=== PATIENT | female | born 1950 | race Caucasian/White ===

== ENCOUNTER → 2017-11-01 14:21 | Outpatient (CLI) | payer MEDICARE, OTHER, SELFPAY ==
[2017-11-01 15:57] LABS: Absolute Lymphocyte Count 2.79 X10^3/ul (0.83-4.51); Absolute Neutrophil Count 4.2 X10^3/uL (2.0-7.7); Basophil# 0.07 X10^3/uL; Basophil% 0.9 % (0-1); Eosinophil# 0.18 X10^3/uL; Eosinophils% 2.3 % (0-5); Hematocrit 42.2 % (37-47); Lymphocyte # 2.79 X10^3/ul (4.0); Lymphocyte % 36.1 % (19-41); Mean Corp Hgb Conc 33.2 g/gl (32-36); Mean Corpuscular Hgb 28.2 pg (27.0-32.0); Mean Corpuscular Volume 84.9 fL (81-99); Mean Platelet Vol. 10.4 fl (6.2-12.0); Monocyte# 0.46 X10^3/uL; Neutrophil % 54.4 % (47-70); Platelet Count 185 K/mm3 (150-450); RBC Distribution Width CV 13.3 % (11.6-14.6); RBC Distribution Width SD 40.6 fl (35.1-43.9); Red Blood Count 4.97 M/mm3 (4.2-5.4); White Blood Count 7.7 K/mm3 (4.4-11.0)
[2017-11-01 16:00] LABS: POSITIVE COUNT NO; POSITIVE DIFFERENTIAL NO; POSITIVE MORPHOLOGY NO
[2017-11-01 16:16] LABS: Erythrocyte Sedimentation Rate 20 mm/hr (0-30)
[2017-11-01 16:33] LABS: AST(SGOT) 75 U/L (15-37); Alanine Aminotransfer ALT/SGPT 116 U/L (12-78); Albumin, Serum 3.9 g/dL (3.4-5.0); Alkaline Phosphatase 110 U/L (45-117); Anion Gap 9 (5-15); BUN 14 mg/dL (7-18); BUN/Creat Ratio 16.4 RATIO (10-20); CRP 4.82 mg/L (0.0-3.0); Calcium,Total 9.3 mg/dL (8.5-10.1); Chloride 102 mmol/L (98-107); Cholesterol 243 mg/dL (200); Creatinine, Serum 0.85 mg/dL (0.55-1.02); EST Glomerular Filtration Rate 71 mL/min (>60); Est Glom Filt Rate - Afr Amer 86 mL/min (>60); Globulin 3.8 g/dL (2.2-4.2); Glucose 87 mg/dL (70-110); High Density Lipoprotein 42 mg/dL; Potassium 3.9 mmol/L (3.5-5.1); Protein, Total 7.7 g/dL (6.4-8.2); Rheumatoid Factor < 10.0 IU/mL (<15); Sodium Level 140 mmol/L (136-145); Triglycerides 426 mg/dL
[2017-11-05 09:36] LABS: ANTINUCLEAR ANTIBODIES DIRECT Negative (Negative)
[2017-11-05 10:28] LABS: CCP IgG Antibodies 5 units (0-19)
== END ==
PROVIDERS: Family Provider Family Medicine; PCP Family Medicine; Visit Provider Family Medicine
DX: M25.50 Pain in unspecified joint (principal); E78.5 Hyperlipidemia, unspecified; R53.83 Other fatigue
CPT/HCPCS: 36415; 80053; 80061; 85025; 85652; 86038; 86140; 86200; 86431

== ENCOUNTER → 2018-05-05 10:46 | Outpatient (CLI) | payer MEDICARE, OTHER, SELFPAY ==
--- NOTE | 2018-05-05 10:48 | BI_ITS ---
MAMMOGRAPHY - BILATERAL SCREENING REASON FOR EXAM: Female, 68 years old. Routine annual screening examination. PERTINENT HISTORY: Sister with breast cancer. TECHNIQUE: Digital bilateral breast angelica (3D mammographic acquisition) in the CC and MLO projections. 2-D mediolateral oblique (MLO) and craniocaudad (CC) views of both breasts were obtained. CAD: Full Field Digital Mammography with Computer Added Detection was performed. COMPARISON: Comparison is made with prior study dated May 01, 2017 and April 16, 2016. FINDINGS: Breast Composition: The breasts are almost entirely fatty. There are no dominant masses or suspicious calcifications. No other significant abnormalities are identified. There has been no significant change since the prior study. BI/SCREENING MAMM (CAD), BILAT IMPRESSION: Stable bilateral screening mammogram. Yearly follow-up mammogram recommended. (A) ASSESSMENT CATEGORY: BIRADS Category 1: Negative. A letter regarding these results will be sent to the patient by the facility within 30 days. Approximately 10% of breast cancers are not detected by mammography. A normal mammogram should not delay biopsy of a clinically suspicious abnormality. [id number] Electronically Signed: Dhiraj Bliss MD at 13:56 EDT Tel [phone], Service support ,
== END ==
PROVIDERS: Family Provider Family Medicine; PCP Family Medicine; Visit Provider Family Medicine
DX: Z12.31 Encounter for screening mammogram for malignant neoplasm of breast (principal)
CPT/HCPCS: 77063; 77067

== ENCOUNTER → 2019-01-05 10:06 | Outpatient (CLI) | payer MEDICARE, OTHER, SELFPAY ==
[2019-01-05 12:49] LABS: ALB/GLOB Ratio 0.9 RATIO (0.9-2.4); AST(SGOT) 116 U/L (15-37); Alanine Aminotransfer ALT/SGPT 152 U/L (13-56); Albumin, Serum 3.7 g/dL (3.2-5.0); Alkaline Phosphatase 116 U/L (45-117); Anion Gap 6 (5-15); BUN 11 mg/dL (7-18); BUN/Creat Ratio 13.2 RATIO (10-20); Calcium,Total 9.2 mg/dL (8.5-10.1); Chloride 105 mmol/L (98-107); Cholesterol 251 mg/dL (200); Creatinine, Serum 0.83 mg/dL (0.55-1.02); EST Glomerular Filtration Rate 73 mL/min (>60); Est Glom Filt Rate - Afr Amer 88 mL/min (>60); Globulin 4.3 g/dL (2.2-4.2); Glucose 90 mg/dL (74-106); High Density Lipoprotein 53 mg/dL; Potassium 4.3 mmol/L (3.5-5.1); Sodium Level 140 mmol/L (136-145); Triglycerides 247 mg/dL; Very Low Density Lipoprotein 49 mg/dL (5-40)
[2019-01-05 13:53] LABS: Absolute Lymphocyte Count 2.76 X10^3/ul (0.83-4.51); Absolute Neutrophil Count 3.9 X10^3/uL (2.0-7.7); Basophil# 0.07 X10^3/uL; Basophil% 0.9 % (0-1); Eosinophil# 0.19 X10^3/uL; Eosinophils% 2.6 % (0-5); Hematocrit 44.9 % (37-47); Hemoglobin 14.9 g/dl (12.0-15.0); Lymphocyte # 2.76 X10^3/ul (4.0); Lymphocyte % 37.3 % (19-41); Mean Corp Hgb Conc 33.2 g/gl (32-36); Mean Corpuscular Volume 84.4 fL (81-99); Mean Platelet Vol. 10.4 fl (6.2-12.0); Monocyte# 0.52 X10^3/uL; Neutrophil # 3.85 X10^3/uL (2.7-7.7); Neutrophil % 52.1 % (47-70); Platelet Count 243 K/mm3 (150-450); Red Blood Count 5.32 M/mm3 (4.2-5.4); White Blood Count 7.4 K/mm3 (4.4-11.0)
[2019-01-05 14:13] LABS: POSITIVE COUNT NO; POSITIVE DIFFERENTIAL NO; POSITIVE MORPHOLOGY NO
== END ==
PROVIDERS: Family Provider Family Medicine; PCP Family Medicine; Referring Provider Family Medicine; Visit Provider Family Medicine
DX: Z00.01 Encounter for general adult medical examination with abnormal findings (principal); E78.5 Hyperlipidemia, unspecified; R74.8 Abnormal levels of other serum enzymes; D64.9 Anemia, unspecified
CPT/HCPCS: 36415; 80053; 80061; 85025

== ENCOUNTER → 2019-01-12 | Outpatient (CLI) | payer MEDICARE, OTHER, SELFPAY ==
--- NOTE | 2019-01-12 09:37 | US_ITS ---
STUDY: ABDOMINAL ULTRASOUND - RIGHT UPPER QUADRANT REASON FOR VISIT: Female, 69 years old. Elevated liver function tests. TECHNIQUE: Ultrasound evaluation of the right upper quadrant was performed with real-time and static anderson-scale imaging. TECHNICAL QUALITY: Adequate. COMPARISON: None. FINDINGS: Liver: The liver measures 19.1 cm. There is increased echogenicity and coarsened echotexture consistent with fatty infiltration. The bile ducts are within normal limits. There is hepatic color flow. The direction of portal flow is hepatopetal. There is no demonstrated mass lesion. Gallbladder: Normal distended gallbladder. The gallbladder wall measures 3 mm. There is a negative sonographic Tenorio's sign. There is no pericholecystic fluid. There are no gallstones. Common Bile Duct (C.B.D.): The common bile duct measures 4 mm. Pancreas: Normal size of the head, body and tail of the pancreas. There is normal echogenicity of the pancreas. There is no demonstrated pancreatic mass or cyst. Right Kidney: Normal size of the right kidney. The right kidney measures 10.7 cm. Normal renal cortex. The right cortex measures 1.5 cm. There is no demonstrated renal mass or cyst. There is no right hydronephrosis. US/Liver IMPRESSION: Fatty liver. Normal gallbladder. Electronically Signed: Adithya Serra MD at 6:01 EDT , Service support ,
== END | disposition home or self-care (01) ==
LOC: US 09:36
PROVIDERS: Family Provider Family Medicine; PCP Family Medicine; Referring Provider Family Medicine; Visit Provider Family Medicine
DX: R74.8 Abnormal levels of other serum enzymes (principal)
CPT/HCPCS: 76705

== ENCOUNTER → 2019-01-21 10:30 | Outpatient (CLI) | payer MEDICARE, OTHER, SELFPAY ==
[2019-01-21 12:52] LABS: Erythrocyte Sedimentation Rate 20 mm/hr (0-30)
[2019-01-22 16:22] LABS: Anti-Mitochondrial AB <20.0 Units (0.0-20.0); Anti-Smooth Muscle ABS 7 Units (0-19); HEPATITIS B SURFACE AG Negative (Negative); Hep C Antibodies <0.1 s/co ratio (0.0-0.9)
== END ==
PROVIDERS: Family Provider Family Medicine; PCP Family Medicine; Referring Provider Internal Medicine Gastroenterology; Visit Provider Internal Medicine Gastroenterology
DX: K75.9 Inflammatory liver disease, unspecified (principal)
CPT/HCPCS: 36415; 83516; 85652; 86803; 87340

== ENCOUNTER → 2019-04-17 13:44 | Outpatient (CLI) | payer MEDICARE, OTHER, SELFPAY ==
[2019-04-17 15:52] LABS: AST(SGOT) 39 U/L (15-37); Alanine Aminotransfer ALT/SGPT 44 U/L (13-56); Albumin, Serum 3.7 g/dL (3.2-5.0); Alkaline Phosphatase 93 U/L (45-117); Cholesterol 164 mg/dL (200); Globulin 3.7 g/dL (2.2-4.2); High Density Lipoprotein 52 mg/dL; Protein, Total 7.4 g/dL (6.4-8.2); Triglycerides 256 mg/dL; Very Low Density Lipoprotein 51 mg/dL (5-40)
== END ==
PROVIDERS: Family Provider Family Medicine; PCP Family Medicine; Visit Provider Family Medicine
DX: E78.5 Hyperlipidemia, unspecified (principal)
CPT/HCPCS: 36415; 80061; 80076

== ENCOUNTER → 2019-05-06 10:27 | Outpatient (CLI) | payer MEDICARE, OTHER, SELFPAY ==
--- NOTE | 2019-05-06 10:43 | BI_ITS ---
MAMMOGRAPHY - BILATERAL SCREENING REASON FOR EXAM: Female, 69 years old. Routine annual screening examination. PERTINENT HISTORY: Sister with breast cancer. TECHNIQUE: Digital bilateral breast conchis (3D mammographic acquisition) in the CC and MLO projections. 2-D mediolateral oblique (MLO) and craniocaudad (CC) views of both breasts were obtained. CAD: Full Field Digital Mammography with Computer Added Detection was performed. COMPARISON: Comparison is made with prior study dated May 05, 2018 and May 01, 2017. FINDINGS: Breast Composition: The breasts are almost entirely fatty. There are no dominant masses or suspicious calcifications. No other significant abnormalities are identified. There has been no significant change since the prior study. BI/SCREEN MAMM (CAD) W/CONCHIS BILAT IMPRESSION: Stable bilateral screening mammogram. Yearly follow-up mammogram recommended. (A) ASSESSMENT CATEGORY: BIRADS Category 1: Negative. A letter regarding these results will be sent to the patient by the facility within 30 days. Approximately 10% of breast cancers are not detected by mammography. A normal mammogram should not delay biopsy of a clinically suspicious abnormality. [id number] Electronically Signed: Dhiraj Bliss, at 13:49 EDT , Service support ,
== END ==
PROVIDERS: Family Provider Family Medicine; PCP Family Medicine; Referring Provider Family Medicine; Visit Provider Family Medicine
DX: Z12.31 Encounter for screening mammogram for malignant neoplasm of breast (principal); M81.0 Age-related osteoporosis without current pathological fracture
CPT/HCPCS: 77063; 77067

== ENCOUNTER → 2019-05-07 10:00 | Outpatient (CLI) | payer MEDICARE, OTHER, SELFPAY ==
--- NOTE | 2019-05-07 10:03 | BD_ITS ---
STUDY: DUAL ENERGY X-RAY ABSORPTIOMETRY / DXA REASON FOR EXAM: Female, 69 years old. The patient is postmenopausal. Loss of height. TECHNIQUE: Bone Mineral Density (BMD) measurements of lumbar spine and bilateral hips were obtained. COMPARISON: Comparison is made with prior study dated March 13, 2011. FINDINGS: Lumbar Spine (L1-L4): g/cm2 (0.901) / T-score (-2.3) / Z-score (-0.7) Findings are suggestive of osteopenia with a high fracture risk. Left Femur Total: g/cm2 (0.849) / T-score (-1.3) / Z-score (0.1) Left Femoral Neck: g/cm2 (0.714) / T-score (-2.3) / Z-score (-0.7) Right Femur Total: g/cm2 (0.820) / T-score (-1.5) / Z-score (-0.1) Right Femoral Neck: g/cm2 (0.740) / T-score (-2.1) / Z-score (-0.5) The T-Scores on the most recent prior examination were: Lumbar Spine (L1-L4): There has been worsening of bone density since the previous examination. Left Femur Total: which represents a worsening of 3.1%. Right Femur Total: which represents a worsening of 8.1%. BD/Dexa Bone Density Study IMPRESSION: The patient is considered osteopenic as outlined below according to World Sandor Organization (WHO) criteria with a high fracture risk. There has been worsening of bone density since the previous examination. Reference Information: The T-score is the number of standard deviations above or below the standard which is normal for young adults at their peak bone mineral density. The World Health Organization (WHO) interprets the T-scores as follows: Above -1 Normal bone density Between -1 and -2.5 Osteopenia Equal to / or below -2.5 Osteoporosis As a practical clinical guideline, osteopenia may be graded as follows: Mild -1 through -1.5 Moderate -1.6 through -2.0 Severe -2.1 through -2.4 The Z-score is the number of standard deviations above or below age-matched controls. A Z-score of less than -1.5 would be considered abnormal. References: 1. NIH Osteoporosis and Related Bone Diseases http://www.osteo.org 2. International Society for Clinical Densitometry http://www.iscd.org 3. National Osteoporosis Foundation http://www.nof.org Electronically Signed: Dhiraj Bliss, at 10:44 EDT , Service support ,
== END ==
PROVIDERS: Family Provider Family Medicine; PCP Family Medicine; Referring Provider Family Medicine; Visit Provider Family Medicine
DX: M81.0 Age-related osteoporosis without current pathological fracture (principal)
CPT/HCPCS: 77080

== ENCOUNTER → 2020-03-22 11:39 | Outpatient (CLI) | payer MEDICARE, SELFPAY ==
[2020-03-22 15:03] LABS: Absolute Lymphocyte Count 2.52 X10^3/uL (0.83-4.51); Absolute Neutrophil Count 3.9 X10^3/uL (2.0-7.7); Basophil# 0.07 X10^3/uL; Eosinophil# 0.17 X10^3/uL; Eosinophils% 2.4 % (0-5); Hematocrit 43.6 % (37-47); Hemoglobin 13.7 g/dL (12.0-15.0); Lymphocyte # 2.52 X10^3/ul (4.0); Lymphocyte % 35.2 % (19-41); Mean Corp Hgb Conc 31.4 g/dL (32-36); Mean Corpuscular Volume 85.8 fL (81-99); Mean Platelet Vol. 10.7 fl (6.2-12.0); NRBC Flagged by Analyzer 0 % (0-5); Neutrophil # 3.89 X10^3/uL (2.7-7.7); Neutrophil % 54.3 % (47-70); Platelet Count 137 K/mm3 (150-450); RBC Distribution Width CV 14.2 % (11.6-14.6); Red Blood Count 5.08 M/mm3 (4.2-5.4); White Blood Count 7.2 K/mm3 (4.4-11.0)
[2020-03-22 15:14] LABS: Vitamin D,25 Hydroxy 41.2 ng/mL
[2020-03-22 15:18] LABS: ALB/GLOB Ratio 0.9 RATIO (0.9-2.4); AST(SGOT) 30 U/L (15-37); Alanine Aminotransfer ALT/SGPT 46 U/L (13-56); Albumin, Serum 3.6 g/dL (3.2-5.0); Alkaline Phosphatase 91 U/L (45-117); Anion Gap 5 (5-15); BUN 11 mg/dL (7-18); BUN/Creat Ratio 12.7 RATIO (10-20); Calcium,Total 9.1 mg/dL (8.5-10.1); Chloride 104 mmol/L (98-107); Cholesterol 195 mg/dL (200); Creatinine, Serum 0.86 mg/dL (0.55-1.02); EST Glomerular Filtration Rate 69 mL/min (>60); Est Glom Filt Rate - Afr Amer 84 mL/min (>60); Glucose 95 mg/dL (74-106); High Density Lipoprotein 50 mg/dL; Potassium 4.4 mmol/L (3.5-5.1); Protein, Total 7.6 g/dL (6.4-8.2); Sodium Level 140 mmol/L (136-145); T4 Free Direct 0.86 ng/dL (0.76-1.46); Triglycerides 293 mg/dL; Very Low Density Lipoprotein 59 mg/dL (5-40)
[2020-03-24 14:31] LABS: Thyroid Stim Hormone (TSH) 1.93 uIU/mL (0.358-3.74)
== END ==
PROVIDERS: PCP Family Medicine; Visit Provider Family Medicine
DX: R23.2 Flushing (principal); E78.5 Hyperlipidemia, unspecified; D50.9 Iron deficiency anemia, unspecified; K75.81 Nonalcoholic steatohepatitis (NASH); M81.0 Age-related osteoporosis without current pathological fracture
CPT/HCPCS: 36415; 80053; 80061; 82306; 84439; 84443; 85025

== ENCOUNTER → 2020-05-26 16:04 | Outpatient (CLI) | payer MEDICARE, OTHER, SELFPAY ==
--- NOTE | 2020-05-26 16:06 | BI_ITS ---
MAMMOGRAPHY - BILATERAL SCREENING 3-D TOMOSYNTHESIS REASON FOR EXAM: Female, 70 years old. Annual screening mammogram. PERTINENT HISTORY: Family history of breast cancer in sister at age 59. TECHNIQUE: 2-D mammograms and 3-D Tomosynthesis of the breast (s) were performed. CAD was performed. COMPARISON: 05/06/2019, 05/05/2018 FINDINGS: The breast composition is almost entirely fat. Scattered benign calcifications are seen. No dense spiculated masses or suspicious microcalcifications are identified. No architectural distortion is identified. There is no skin thickening or retraction. There has been no significant change since the prior study. BI/SCREEN MAMM (CAD) W/CONCHIS BILAT IMPRESSION: No mammographic signs of malignancy. Routine yearly mammograms recommended. ASSESSMENT CATEGORY: BIRADS Category 2: Benign. A letter regarding these results will be sent to the patient by the facility within 30 days. FOLLOW UP RECOMMENDATION: Yearly follow up mammogram recommended. (A) Approximately 10% of breast cancers are not detected by mammography. A normal mammogram should not delay biopsy of a clinically suspicious abnormality. Electronically Signed: Roddy Cooper MD at 15:36 EDT , Service support ,
== END ==
PROVIDERS: PCP Family Medicine; Referring Provider Family Medicine; Visit Provider Family Medicine
DX: Z12.31 Encounter for screening mammogram for malignant neoplasm of breast (principal); Z80.3 Family history of malignant neoplasm of breast
CPT/HCPCS: 77063; 77067

== ENCOUNTER → 2020-06-20 10:14 | Outpatient (CLI) | payer MEDICARE, OTHER, SELFPAY ==
--- NOTE | 2020-06-20 10:19 | RAD_ITS ---
STUDY: X-RAY - CERVICAL SPINE REASON FOR EXAM: Female, 70 years old. PERSISTENT NECK PAIN AND GRINDING x2-3 MONTHS, NKI TECHNIQUE: 5 view(s) of the cervical spine were obtained. COMPARISON: None FINDINGS: Normal anterior atlantoaxial articulation. Normal odontoid process. Decreased cervical lordosis. Mild degenerative changes of the lower cervical vertebral bodies with spurring at the endplates. Narrowed C5-6 and C6-7 disc space heights. Grade 1 spondylolisthesis at C3-4 and C4-5. Uncovertebral spurring slightly narrowing the C5-6 and C6-7 The soft tissue structures are unremarkable. RAD/Cerv Spine 4 or 5 Views IMPRESSION: Degenerative changes of the visualized cervical spine. Electronically Signed: Omar Rios DO at 23:59 EDT Tel [phone], Service support ,
== END ==
PROVIDERS: PCP Family Medicine; Referring Provider Family Medicine; Visit Provider Family Medicine
DX: M54.2 Cervicalgia (principal)
CPT/HCPCS: 72050

== ENCOUNTER → 2020-07-04 06:16 | Outpatient (CLI) | payer MEDICARE, OTHER, SELFPAY ==
--- NOTE | 2020-07-04 18:23 | STRESSREP ---
Stress Test Report Exercise myocardial perfusion stress test. 70-year-old lady with a history of chest pain. Stress protocol: Resting EKG demonstrates normal sinus rhythm with a rate of 69 bpm normal intervals are noted resting blood pressure is 122/80 mmHg. The patient exercised according to regular Ortiz protocol for a total duration of 4 minutes and 31 seconds. The patient completed 1 minute and 31 seconds into stage II of the Ortiz protocol. The maximum heart rate attained was 136 bpm which was 90% of max impacted heart rate the maximum workload was 6.4 metabolic equivalents. At rest there were no ST or T wave changes noted to suggest ischemia at peak exercise upsloping ST changes were noted less than 1 mm which did not meet the criteria for ischemia. No obvious clinical angina was noted the test was terminated due to dyspnea. The resting blood pressure was 122/80 mmHg with a peak blood pressure of 164/72 mmHg. Myocardial perfusion protocol. 11.4 mCi of technetium 99m sestamibi was injected at rest. The patient exercised according to regular Ortiz protocol for 4-1/2 minutes. At peak exercise 32.9 mCi of technetium 99m sestamibi was injected stress images were obtained stress and rest images were reconstructed and compared in the short axis vertical long and horizontal long axis. Gated images were also obtained. Perfusion SPECT analysis: Review of the stress images demonstrate normal uptake of tracer noted in all areas of the myocardium the resting images similar demonstrate normal uptake of tracer noted in all areas of the myocardium. No areas of reversibility are noted suggest ischemia no previous infarct is noted. Gated SPECT analysis: The gated ejection fraction is 68%. Conclusion: Normal exercise myocardial perfusion stress test at a moderate workload. Preserved ejection fraction.
== END ==
PROVIDERS: PCP Family Medicine; Referring Provider Family Medicine; Visit Provider Family Medicine
DX: R06.00 Dyspnea, unspecified (principal)
CPT/HCPCS: 78452; 93017; A9500; A4216

== ENCOUNTER 2020-09-09 12:00 | Outpatient (RCR) | payer MEDICARE, OTHER, SELFPAY ==
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
--- NOTE | 2020-09-09 12:55 | HP.PTDCSUM ---
It has been my pleasure to treat EVELIN HAMMOND referred by Dr. Aldo Godwin DO, with the diagnosis of CERVICALGIA for a total of 20 visit(s). Discharge Date: Please see the following information for a summary of their discharge status. Subjective: PATIENT REPORTS SHE IS SO MUCH BETTER. DECREASED PAIN AND DECREASED CRACKING. GETS NECK ACHES BUT NOT HEADACHES NOW. NECK Pain Intensity (Out of 10): 1 % Improvement: 99 Objective/Function: PATIENT HAS MADE GREAT PROGRESS WITH PT. ALL GOALS MET HOWEVER PATIENT DOES STILL GET INTERMITTENT MILD NECK PAIN AND SHE STILL HAS CERVICAL MVMT LOSS FOLLOWS: Cervical Mvmt Loss: Flex: NIL. Pro: NIL. Ext: MOD - I FEEL A TWINGE ON THE LEFT. Ret: MOD TO MAL - AGAIN REPORTS PRESSURE ON THE LEFT. RSB: MIN TO MOD - C/O LEFT NECK PAIN. LSB: MOD. R Rot: MOD - A LITTLE LEFT NECK PAIN. L Rot: MOD - A LITTLE LEFT NECK PAIN. Postural strength: POOR. Palpation: PATIENT IS TENDER WITH PALPATION ALONG THE LEFT UPPER TRAP AND SCALENE REGIONS INTO OCCIPUT. OVER-ALL SYMPTOMS ARE STARTING TO PLATEAU. Goal 1:: DECREASE C/O HEAD AND NECK PAIN Goal Progress: Goal Met Goal 2:: IMPROVE RECREATIONAL FUNCTION Goal Progress: Goal Met Goal 3:: INSTRUCT IN PROPHYLAXIS Goal Progress: Goal Met Plan: D/C TO INDEP EX AND FOLLOW UP WITH PHYSICIAN NEEDED IF SYMPTOMS DO NOT CONTINUE TO RESOLVE. PATIENT IS AGREEABLE. If there are questions or concerns regarding this patient's physical therapy, please feel free to call me at [phone]. Thank you for the referral of this patient. Sincerely, Indu Yip, PT, Cert MDT
== END 2020-09-09 19:00 | disposition home or self-care (01) ==
LOC: PT 12:00
PROVIDERS: PCP Family Medicine; Referring Provider Family Medicine; Visit Provider Family Medicine
DX: M54.2 Cervicalgia (principal)
CPT/HCPCS: 97012; 97035; 97110; 97112; 97140; 97162; 97164; 97530

== ENCOUNTER → 2021-04-03 10:47 | Outpatient (CLI) | payer MEDICARE, OTHER, SELFPAY ==
--- NOTE | 2021-04-04 06:32 | PFT ---
INTRODUCTION: The patient is a 71-year-old female that presents for pulmonary function studies secondary to a diagnosis of dyspnea. Respiratory therapy reports good patient effort. Bronchodilators were used during testing. INTERPRETATION: Forced expiration spirometry demonstrates the presence of a moderate large airways obstructive ventilatory defect. There was a significant response to aerosolized bronchodilators noted. Spirograms are of good quality and plateau gradually. Body plethysmography was performed and reveals lung volumes to be within normal limits. Diffusing capacity by single breath CO is within normal limits. IMPRESSION: Partially reversible moderate large airways obstructive ventilatory defect with preserved lung volumes and diffusing capacity.
== END ==
PROVIDERS: PCP Family Medicine; Referring Provider Family Medicine; Visit Provider Family Medicine
DX: R06.00 Dyspnea, unspecified (principal)
CPT/HCPCS: 94060; 94726; 94729

== ENCOUNTER → 2021-06-01 10:26 | Outpatient (CLI) | payer MEDICARE, OTHER, SELFPAY ==
--- NOTE | 2021-06-01 10:32 | BI_ITS ---
MAMMOGRAPHY - BILATERAL SCREENING REASON FOR EXAM: Female, 71 years old. Routine annual screening examination. PERTINENT HISTORY: Sister with breast cancer. TECHNIQUE: Digital bilateral breast conchis (3D mammographic acquisition) in the CC and MLO projections. 2-D mediolateral oblique (MLO) and craniocaudad (CC) views of both breasts were obtained. CAD: Full Field Digital Mammography with Computer Added Detection was performed. COMPARISON: Comparison is made with prior study 05/26/2020 and 05/06/2019. FINDINGS: Breast Composition: The breasts are almost entirely fatty. There are no dominant masses or suspicious calcifications. No other significant abnormalities are identified. There has been no significant change since the prior study. BI/SCRN MAMM (CAD)W/CONCHIS BILAT IMPRESSION: Stable bilateral screening mammogram. Yearly follow-up mammogram recommended. (A) ASSESSMENT CATEGORY: BIRADS Category 1: Negative. A letter regarding these results will be sent to the patient by the facility within 30 days. Approximately 10% of breast cancers are not detected by mammography. A normal mammogram should not delay biopsy of a clinically suspicious abnormality. [id number] Electronically Signed: Dhiraj Bliss MD at 11:58 EDT , Service support ,
--- NOTE | 2021-06-01 10:33 | BD_ITS ---
STUDY: DUAL ENERGY X-RAY ABSORPTIOMETRY / DXA REASON FOR EXAM: Female, 71 years old. M810. The patient is postmenopausal. TECHNIQUE: Bone Mineral Density (BMD) measurements of lumbar spine and bilateral hips were obtained. COMPARISON: Comparison is made with prior study dated 05/07/2019. FINDINGS: Lumbar Spine (L1-L4): g/cm2 (0.772) / T-score (-2.5) / Z-score (-0.4) Findings are suggestive of osteopenia with a high fracture risk. Left Femur Total: g/cm2 (0.761) / T-score (-1.5) / Z-score (0.0) Left Femoral Neck: g/cm2 (0.5-2) / T-score (-2.9) / Z-score (-1.1) Right Femur Total: g/cm2 (0.831) / T-score (-0.9) / Z-score (0.6) Right Femoral Neck: g/cm2 (0.630) / T-score (-2.0) / Z-score (-0.2) The T-Scores on the most recent prior examination were: Lumbar Spine (L1-L4): There has been worsening of bone density since the previous examination. Left Femur Total: which represents a worsening of 3.4%. Right Femur Total: which represents an improvement of 9.5%. BD/Dexa Bone Density Study IMPRESSION: The patient is considered osteoporotic as outlined below according to World Sandor Organization (WHO) criteria with a high fracture risk. There has been worsening of bone density since the previous examination. Reference Information: The T-score is the number of standard deviations above or below the standard which is normal for young adults at their peak bone mineral density. The World Health Organization (WHO) interprets the T-scores as follows: Above -1 Normal bone density Between -1 and -2.5 Osteopenia Equal to / or below -2.5 Osteoporosis As a practical clinical guideline, osteopenia may be graded as follows: Mild -1 through -1.5 Moderate -1.6 through -2.0 Severe -2.1 through -2.4 The Z-score is the number of standard deviations above or below age-matched controls. A Z-score of less than -1.5 would be considered abnormal. References: 1. NIH Osteoporosis and Related Bone Diseases www osteo.org 2. International Society for Clinical Densitometry www iscd.org 3. National Osteoporosis Foundation www nof.org Electronically Signed: Dhiraj Bliss MD at 7:46 EDT , Service support ,
== END ==
PROVIDERS: PCP Family Medicine; Referring Provider Family Medicine; Visit Provider Family Medicine
DX: Z12.31 Encounter for screening mammogram for malignant neoplasm of breast (principal); M81.0 Age-related osteoporosis without current pathological fracture
CPT/HCPCS: 77063; 77067; 77080

== ENCOUNTER → 2022-04-04 | Outpatient (CLI) | payer MEDICARE, OTHER, SELFPAY ==
[2022-04-04 09:52] LABS: Absolute Lymphocyte Count 1.93 X10^3/uL (0.83-4.51); Absolute Neutrophil Count 3.3 X10^3/uL (2.0-7.7); Basophil# 0.07 X10^3/uL; Basophil% 1.2 % (0-1); Eosinophil# 0.23 X10^3/uL; Eosinophils% 3.8 % (0-5); Hematocrit 43.1 % (37-47); Hemoglobin 13.9 g/dL (12.0-15.0); Lymphocyte # 1.93 X10^3/ul (0.83-4.51); Lymphocyte % 32.2 % (19-41); Mean Corp Hgb Conc 32.3 g/dL (32-36); Mean Corpuscular Hgb 28.2 pg (27.0-32.0); Mean Corpuscular Volume 87.4 fL (81-99); Mean Platelet Vol. 10.3 fl (6.2-12.0); Monocyte# 0.41 X10^3/uL; Monocyte% 6.8 % (0-10); NRBC Flagged by Analyzer 0 % (0-5); Neutrophil # 3.34 X10^3/uL (2.7-7.7); Neutrophil % 55.8 % (47-70); Platelet Count 237 K/mm3 (150-450); RBC Distribution Width CV 13.1 % (11.6-14.6); RBC Distribution Width SD 41.4 fl (35.1-43.9); Red Blood Count 4.93 M/mm3 (4.2-5.4)
[2022-04-04 10:11] LABS: Vitamin D,25 Hydroxy 48.2 ng/mL
[2022-04-04 10:12] LABS: AST(SGOT) 56 U/L (15-37); Alanine Aminotransfer ALT/SGPT 65 U/L (13-56); Albumin, Serum 3.7 g/dL (3.2-5.0); Alkaline Phosphatase 82 U/L (45-117); Anion Gap 4 (5-15); BUN 12 mg/dL (7-18); BUN/Creat Ratio 14.7 RATIO (10-20); Calcium,Total 9.1 mg/dL (8.5-10.1); Chloride 107 mmol/L (98-107); Cholesterol 176 mg/dL (200); Creatinine, Serum 0.82 mg/dL (0.55-1.02); EST Glomerular Filtration Rate 73 mL/min (>60); Est Glom Filt Rate - Afr Amer 88 mL/min (>60); Globulin 3.7 g/dL (2.2-4.2); Glucose 106 mg/dL (74-106); High Density Lipoprotein 49 mg/dL; Potassium 4.4 mmol/L (3.5-5.1); Protein, Total 7.4 g/dL (6.4-8.2); Sodium Level 141 mmol/L (136-145); Triglycerides 226 mg/dL; Very Low Density Lipoprotein 45 mg/dL (5-40)
== END | disposition home or self-care (01) ==
LOC: MTLAB 09:11
PROVIDERS: PCP Family Medicine; Referring Provider Family Medicine; Visit Provider Family Medicine
DX: K75.81 Nonalcoholic steatohepatitis (NASH) (principal); E78.5 Hyperlipidemia, unspecified; M81.0 Age-related osteoporosis without current pathological fracture; D50.9 Iron deficiency anemia, unspecified
CPT/HCPCS: 36415; 80053; 80061; 82306; 85025

== ENCOUNTER → 2022-06-04 | Outpatient (CLI) | payer MEDICARE, OTHER, SELFPAY ==
--- NOTE | 2022-06-04 13:19 | BI_ITS ---
MAMMOGRAPHY - BILATERAL SCREENING REASON FOR EXAM: Female, 72 years old. Routine annual screening examination. PERTINENT HISTORY: Sister with breast cancer. TECHNIQUE: Digital bilateral breast conchis (3D mammographic acquisition) in the CC and MLO projections. 2-D mediolateral oblique (MLO) and craniocaudad (CC) views of both breasts were obtained. CAD: Full Field Digital Mammography with Computer Added Detection was performed. COMPARISON: Comparison is made with prior study 06/01/2021 and 05/26/2020. FINDINGS: Breast Composition: There are scattered areas of fibroglandular density. There are no dominant masses or suspicious calcifications. Stable small bilateral benign-appearing axillary lymph nodes. No other significant abnormalities are identified. There has been no significant change since the prior study. BI/SCRN MAMM (CAD)W/CONCHIS BILAT IMPRESSION: Stable bilateral screening mammogram. Yearly follow-up mammogram recommended. (A) ASSESSMENT CATEGORY: BIRADS Category 2: Benign. A letter regarding these results will be sent to the patient by the facility within 30 days. Approximately 10% of breast cancers are not detected by mammography. A normal mammogram should not delay biopsy of a clinically suspicious abnormality. [id number] Electronically Signed: Dhiraj Bliss MD at 13:52 EDT ,
== END | disposition home or self-care (01) ==
LOC: OPBI 13:16
PROVIDERS: PCP Family Medicine; Visit Provider Family Medicine
DX: Z12.31 Encounter for screening mammogram for malignant neoplasm of breast (principal); Z80.3 Family history of malignant neoplasm of breast
CPT/HCPCS: 77063; 77067

== ENCOUNTER → 2023-02-06 | Outpatient (CLI) | payer MEDICARE, OTHER, SELFPAY ==
[2023-02-06 17:58] LABS: Absolute Lymphocyte Count 2.59 X10^3/uL (0.83-4.51); Absolute Neutrophil Count 3.5 X10^3/uL (2.0-7.7); Basophil# 0.07 X10^3/uL; Eosinophil# 0.19 X10^3/uL; Eosinophils% 2.7 % (0-5); Hematocrit 39.2 % (37-47); Hemoglobin 12.4 g/dL (12.0-15.0); Lymphocyte # 2.59 X10^3/ul (0.83-4.51); Lymphocyte % 37.3 % (19-41); Mean Corp Hgb Conc 31.6 g/dL (32-36); Mean Corpuscular Volume 85.4 fL (81-99); Mean Platelet Vol. 9.7 fl (6.2-12.0); Monocyte# 0.58 X10^3/uL; Monocyte% 8.3 % (0-10); NRBC Flagged by Analyzer 0 % (0-5); Neutrophil # 3.49 X10^3/uL (2.7-7.7); Neutrophil % 50.3 % (47-70); Platelet Count 289 K/mm3 (150-450); RBC Distribution Width CV 14.8 % (11.6-14.6); RBC Distribution Width SD 46.3 fl (35.1-43.9); Red Blood Count 4.59 M/mm3 (4.2-5.4)
[2023-02-06 18:23] LABS: ALB/GLOB Ratio 1.1 RATIO (0.9-2.4); AST(SGOT) 60 U/L (15-37); Alanine Aminotransfer ALT/SGPT 66 U/L (13-56); Albumin, Serum 3.5 g/dL (3.2-5.0); Alkaline Phosphatase 95 U/L (45-117); Anion Gap 8 (5-15); BUN 11 mg/dL (7-18); BUN/Creat Ratio 13.8 RATIO (10-20); Calcium,Total 8.6 mg/dL (8.5-10.1); Chloride 105 mmol/L (98-107); EST Glomerular Filtration Rate 75 mL/min (>60); Est Glom Filt Rate - Afr Amer 91 mL/min (>60); Globulin 3.1 g/dL (2.2-4.2); Glucose 112 mg/dL (74-106); Protein, Total 6.6 g/dL (6.4-8.2); Sodium Level 140 mmol/L (136-145); Thyroid Stim Hormone (TSH) 2.35 uIU/mL (0.358-3.74)
[2023-02-06 18:40] LABS: Internal QC Validated? YES +Cl - CLEAR BKGD; Monotest Negative (Negative)
== END | disposition home or self-care (01) ==
LOC: MFPLAB 15:54
PROVIDERS: PCP Family Medicine; Visit Provider Family Medicine
DX: R53.83 Other fatigue (principal)
CPT/HCPCS: 36415; 80053; 84443; 85025; 86308

== ENCOUNTER → 2023-04-18 | Outpatient (CLI) | payer MEDICARE, OTHER, SELFPAY ==
[2023-04-18 15:41] LABS: ALB/GLOB Ratio 0.9 RATIO (0.9-2.4); AST(SGOT) 94 U/L (15-37); Alanine Aminotransfer ALT/SGPT 97 U/L (13-56); Albumin, Serum 3.5 g/dL (3.2-5.0); Alkaline Phosphatase 93 U/L (45-117); Anion Gap 8 (5-15); BUN 8 mg/dL (7-18); BUN/Creat Ratio 10.1 RATIO (10-20); Chloride 103 mmol/L (98-107); Cholesterol 158 mg/dL (200); Creatinine, Serum 0.79 mg/dL (0.55-1.02); EST Glomerular Filtration Rate 76 mL/min (>60); Est Glom Filt Rate - Afr Amer 92 mL/min (>60); Ferritin 64 ng/mL (8-252); Glucose 84 mg/dL (74-106); High Density Lipoprotein 50 mg/dL; Potassium 4.1 mmol/L (3.5-5.1); Protein, Total 7.5 g/dL (6.4-8.2); Sodium Level 140 mmol/L (136-145); Triglycerides 215 mg/dL; Very Low Density Lipoprotein 43 mg/dL (5-40)
[2023-04-18 15:42] LABS: Vitamin B12 789 pg/mL (211-911); Vitamin D,25 Hydroxy 51.3 ng/mL
[2023-04-18 16:24] LABS: AST(SGOT) 95 U/L (15-37); Alanine Aminotransfer ALT/SGPT 98 U/L (13-56); Albumin, Serum 3.5 g/dL (3.2-5.0); Alkaline Phosphatase 96 U/L (45-117); Bilirubin, Direct 0.13 mg/dL (0.00-0.30); Protein, Total 7.5 g/dL (6.4-8.2)
[2023-04-18 17:32] LABS: Hemoglobin A1c 5.6 % (3.8-5.6)
== END | disposition home or self-care (01) ==
LOC: MTLAB 11:49
PROVIDERS: Family Medicine; PCP Family Medicine; Visit Provider Family Medicine
DX: E78.2 Mixed hyperlipidemia (principal); R74.8 Abnormal levels of other serum enzymes; R73.09 Other abnormal glucose; K21.9 Gastro-esophageal reflux disease without esophagitis
CPT/HCPCS: 36415; 80053; 80061; 80076; 82306; 82607; 82728; 83036

== ENCOUNTER → 2023-06-05 | Outpatient (CLI) | payer MEDICARE, OTHER, SELFPAY ==
--- NOTE | 2023-06-05 10:34 | BI_ITS ---
MAMMOGRAPHY - BILATERAL SCREENING REASON FOR EXAM: Female, 73 years old. Routine annual screening examination. PERTINENT HISTORY: Sister with breast cancer. TECHNIQUE: Digital bilateral breast conchis (3D mammographic acquisition) in the CC and MLO projections. 2-D mediolateral oblique (MLO) and craniocaudad (CC) views of both breasts were obtained. CAD: Full Field Digital Mammography with Computer Added Detection was performed. COMPARISON: Comparison is made with prior study June 04, 2022 and June 01, 2021. FINDINGS: Breast Composition: There are scattered areas of fibroglandular density. There are no dominant masses or suspicious calcifications. Stable small benign-appearing bilateral axillary lymph nodes. No other significant abnormalities are identified. There has been no significant change since the prior study. BI/SCRN MAMM (CAD)W/CONCHIS BILAT IMPRESSION: Stable bilateral screening mammogram. Yearly follow-up mammogram recommended. (A) ASSESSMENT CATEGORY: BIRADS Category 2: Benign. A letter regarding these results will be sent to the patient by the facility within 30 days. Approximately 10% of breast cancers are not detected by mammography. A normal mammogram should not delay biopsy of a clinically suspicious abnormality. [id number] Electronically Signed: Dhiraj Bliss MD at 12:33 EDT ,
--- NOTE | 2023-06-05 10:52 | BD_ITS ---
STUDY: DUAL ENERGY X-RAY ABSORPTIOMETRY / DXA REASON FOR EXAM: Female, 73 years old. M81.0 TECHNIQUE: Bone Mineral Density (BMD) measurements of lumbar spine and bilateral hips were obtained. COMPARISON: Comparison is made with prior study dated June 01, 2021. FINDINGS: Lumbar Spine (L1-L4): g/cm2 (0.829) / T-score (-2.0) / Z-score (0.3) Findings are suggestive of osteopenia with a moderate fracture risk. Left Femur Total: g/cm2 (0.826) / T-score (-1.0) / Z-score (0.7) Left Femoral Neck: g/cm2 (0.578) / T-score (-2.4) / Z-score (-0.5) Right Femur Total: g/cm2 (0.830) / T-score (-0.9) / Z-score (0.7) Right Femoral Neck: g/cm2 (0.610) / T-score (-2.2) / Z-score (-0.2) The T-Scores on the most recent prior examination were: Lumbar Spine (L1-L4): There has been improvement of bone density since the previous examination. Left Femur Total: which represents an improvement of 8.6%. Right Femur Total: which represents a worsening of 0.1%. BD/Dexa Bone Density Study IMPRESSION: The patient is considered osteopenic as outlined below according to World Sandor Organization (WHO) criteria with a high fracture risk. There has been improvement of bone density since the previous examination. Reference Information: The T-score is the number of standard deviations above or below the standard which is normal for young adults at their peak bone mineral density. The World Health Organization (WHO) interprets the T-scores as follows: Above -1 Normal bone density Between -1 and -2.5 Osteopenia Equal to / or below -2.5 Osteoporosis As a practical clinical guideline, osteopenia may be graded as follows: Mild -1 through -1.5 Moderate -1.6 through -2.0 Severe -2.1 through -2.4 The Z-score is the number of standard deviations above or below age-matched controls. A Z-score of less than -1.5 would be considered abnormal. References: 1. NIH Osteoporosis and Related Bone Diseases www osteo.org 2. International Society for Clinical Densitometry www iscd.org 3. National Osteoporosis Foundation www nof.org Electronically Signed: Dhiraj Bliss MD at 14:17 EDT ,
== END | disposition home or self-care (01) ==
LOC: OPBD 10:32
PROVIDERS: PCP Family Medicine; Referring Provider Family Medicine; Visit Provider Family Medicine
DX: Z12.31 Encounter for screening mammogram for malignant neoplasm of breast (principal); Z80.3 Family history of malignant neoplasm of breast; M81.0 Age-related osteoporosis without current pathological fracture
CPT/HCPCS: 77063; 77067; 77080

== ENCOUNTER → 2023-09-24 | Outpatient (CLI) | payer MEDICARE, OTHER, SELFPAY ==
--- NOTE | 2023-09-24 15:41 | RAD_ITS ---
STUDY: X-RAY - SACROILIAC JOINTS REASON FOR EXAM: Female, 73 years old. BACK PAIN TECHNIQUE: 3 view(s) of the sacroiliac joints were obtained. COMPARISON: None. FINDINGS: Normal bilateral sacroiliac joints. Normal visualized sacral ala and sacrum. Normal visualized iliac bones. Normal visualized soft tissue structures. RAD/S-I Jts 3 or More Views IMPRESSION: Normal x-ray examination of the bilateral sacroiliac joints. Electronically Signed: Jordon Erwin MD at 22:09 EST ,
--- NOTE | 2023-09-24 15:42 | RAD_ITS ---
STUDY: X-RAY - LUMBAR SPINE REASON FOR EXAM: Female, 73 years old. BACK PAIN TECHNIQUE: 5 view(s) of the lumbar spine were obtained. COMPARISON: 04/16/2017 FINDINGS: Normal lumbar lordosis. Mild dextroscoliosis centered at L3. 2 mm of anterolisthesis of L4 on L5 which is unchanged. There is multilevel endplate spondylosis of the lumbar vertebrae. There is multi-level degenerative disc disease with multi-level disc space narrowing. There is multilevel facet hypertrophy in the lower lumbar spine. The soft tissue structures are unremarkable. RAD/L/S Spine Min 4 Views IMPRESSION: Mild dextroscoliosis with degenerative disc disease in 2 mm of anterolisthesis of L4 on L5. MRI may be useful. Electronically Signed: Jordon Erwin MD at 22:04 EST ,
== END | disposition home or self-care (01) ==
LOC: MTRAD 15:39
PROVIDERS: PCP Family Medicine; Referring Provider Family Medicine; Visit Provider Family Medicine
DX: M54.50 Low back pain, unspecified (principal)
CPT/HCPCS: 72110; 72202

== ENCOUNTER → 2023-11-18 | Outpatient (CLI) | payer MEDICARE, SELFPAY ==
--- NOTE | 2023-11-18 17:43 | MRI_ITS ---
STUDY: MRI LUMBAR SPINE WITHOUT CONTRAST REASON FOR EXAM: Female, 73 years old. LBP NKI, PAIN IN UPPER HIP ACROSS BUTTOCKS [id number], NO SURGERY TECHNIQUE: Standardized fat and water weighted pulse sequences were obtained in the sagittal and axial planes. COMPARISON: MRI the lumbar spine dated April 20, 2016. X-ray the lumbar spine dated September 24, 2023 FINDINGS: Normal lumbar lordosis. There is no substantial scoliosis. Normal conus medullaris that terminates at the T12-L1 level. No marrow edema or fracture or compression deformity is present. T12-L1: Normal endplates. Normal disc height, hydration and morphology. Normal bilateral facet joints. Normal central canal and bilateral lateral recesses. Normal bilateral intervertebral neural foramina. L1-2: Normal endplates. Normal disc height, hydration and morphology. Normal bilateral facet joints. Normal central canal and bilateral lateral recesses. Normal bilateral intervertebral neural foramina. L2-3: Moderate disc space narrowing with diffuse disc desiccation and minimal annular bulging. Small Schmorl''s nodes on both sides of the disc space. Anterior endplate spurs.. Normal bilateral facet joints. Normal central canal and bilateral lateral recesses. Normal bilateral intervertebral neural foramina. L3-4: Diffuse disc desiccation with moderate disc space narrowing and mild disc bulging. Mild anterior endplate spurring.. Normal bilateral facet joints. Normal central canal and bilateral lateral recesses. Normal bilateral intervertebral neural foramina. L4-5: Normal endplates. Diffuse disc desiccation with mild disc space narrowing and slight posterior annular bulging. Anterolisthesis of L4 and L5 of 2 mm. Mild facet joint hypertrophy. Normal central canal and bilateral lateral recesses. Normal bilateral intervertebral neural foramina. L5-S1: Normal endplates. Diffuse disc desiccation with mild to moderate disc space narrowing and diffuse disc bulging. Slight anterolisthesis of L5 on S1. Mild right facet joint hypertrophy and mild to moderate right foraminal stenosis with nerve root impingement. Normal left neural foramen. Normal central canal and bilateral lateral recesses. Normal visualized sacral ala. Normal visualized paraspinous soft tissue structures. MRI/Spine Lumbar (Routine) IMPRESSION: 1. Multilevel degenerative changes, as described above. 2. No demonstrated central canal stenosis. 3. Mild to moderate right foraminal stenosis with nerve root impingement at L5-S1. Electronically Signed: Reece Fraga MD at 10:25 [facility] ,
== END | disposition home or self-care (01) ==
LOC: MRI 17:38
PROVIDERS: PCP Family Medicine; Referring Provider Family Medicine; Visit Provider Family Medicine
DX: M54.50 Low back pain, unspecified (principal)
CPT/HCPCS: 72148

== ENCOUNTER → 2024-01-27 | Outpatient (CLI) | payer MEDICARE, SELFPAY ==
[2024-01-27 17:29] LABS: Absolute Lymphocyte Count 3.01 X10^3/uL (0.83-4.51); Absolute Neutrophil Count 4.6 X10^3/uL (2.0-7.7); Basophil# 0.08 X10^3/uL; Basophil% 0.9 % (0-1); Eosinophil# 0.15 X10^3/uL; Eosinophils% 1.8 % (0-5); Hematocrit 42.8 % (37-47); Hemoglobin 14.1 g/dL (12.0-15.0); Lymphocyte # 3.01 X10^3/ul (0.83-4.51); Lymphocyte % 35.7 % (19-41); Mean Corp Hgb Conc 32.9 g/dL (32-36); Mean Corpuscular Hgb 28.3 pg (27.0-32.0); Mean Corpuscular Volume 85.8 fL (81-99); Mean Platelet Vol. 10.3 fl (6.2-12.0); Monocyte# 0.56 X10^3/uL; Monocyte% 6.6 % (0-10); NRBC Flagged by Analyzer 0 % (0-5); Neutrophil # 4.61 X10^3/uL (2.7-7.7); Neutrophil % 54.8 % (47-70); Platelet Count 209 K/mm3 (150-450); RBC Distribution Width CV 12.6 % (11.6-14.6); RBC Distribution Width SD 39.4 fl (35.1-43.9); Red Blood Count 4.99 M/mm3 (4.2-5.4); White Blood Count 8.4 K/mm3 (4.4-11.0)
[2024-01-27 17:57] LABS: ALB/GLOB Ratio 1.1 RATIO (0.9-2.4); AST(SGOT) 24 U/L (15-37); Alanine Aminotransfer ALT/SGPT 30 U/L (13-56); Albumin, Serum 3.6 g/dL (3.2-5.0); Alkaline Phosphatase 62 U/L (45-117); Anion Gap 3 (5-15); BUN 14 mg/dL (7-18); BUN/Creat Ratio 15.8 RATIO (10-20); Calcium,Total 9.1 mg/dL (8.5-10.1); Chloride 105 mmol/L (98-107); Cholesterol 172 mg/dL (200); Creatinine, Serum 0.89 mg/dL (0.55-1.02); EST Glomerular Filtration Rate 66 mL/min (>60); Est Glom Filt Rate - Afr Amer 80 mL/min (>60); Globulin 3.3 g/dL (2.2-4.2); Glucose 93 mg/dL (74-106); High Density Lipoprotein 55 mg/dL; Protein, Total 6.9 g/dL (6.4-8.2); Sodium Level 138 mmol/L (136-145); Triglycerides 191 mg/dL; Very Low Density Lipoprotein 38 mg/dL (5-40)
== END | disposition home or self-care (01) ==
LOC: MTLAB 16:38
PROVIDERS: PCP Family Medicine; Referring Provider Family Medicine; Visit Provider Family Medicine
DX: R73.09 Other abnormal glucose (principal); E78.2 Mixed hyperlipidemia; N95.9 Unspecified menopausal and perimenopausal disorder; K92.1 Melena
CPT/HCPCS: 36415; 80053; 80061; 85025

== ENCOUNTER 2024-03-11 17:30 | Inpatient (IN) | payer MEDICARE, SELFPAY ==
[2024-03-11] VITALS (17 sets, daily range): BP systolic 94–128; BP diastolic 40–83; PULSE 62–95; RESP 14–18; TEMP 36.3–37.3; O2SAT 90–98; BMI 29.9
[2024-03-11] MEDS: Lactated Ringers 1,000 ML 15 ML IV (08:54)
--- NOTE | 2024-03-11 09:26 | PCM.HP.BLA ---
History and Physical Date of Service: 02/17/24 MR#: [id number] Acct: [id number] Name: EVELIN HAMMOND Rep #: [id number] : 1950 Provider: Dr. Tushar López MD Age/Sex: 74/F Location: [facility] Status: Signed Intake Vital Signs 11/29/2412:32 02/16/2409:51 Height 5 ft 1 in 5 ft 1 in Weight: 161 lb 171 lb BMI 30.4 32.3 BP 126/80 H Blood Pressure Location Lt brachial Position Sitting Pulse 84 Pulse Source Monitor Temp 97.5 F L Temp Source Temporal Pulse Oximetry (%) 85 Oxygen Delivery Method room air Intake Visit Reasons: COLONOSCOPY SCREENING Behavioral Health Clinician Required: No Accompanied by: Self Is patient in pain?: No Allergies No Known Allergies Allergy (Verified 02/17/24 09:55) Medications escitalopram oxalate 5 mg tablet 5 mg PO DAILY 02/17/24 [History Confirmed 02/17/24] montelukast 10 mg tablet 10 mg PO DAILY 02/17/24 [History Confirmed 02/17/24] omeprazole 20 mg capsule,delayed release 20 mg PO DAILY PRN 02/17/24 [History Confirmed 02/17/24] rosuvastatin 10 mg tablet 10 mg PO DAILY 02/17/24 [History Confirmed 02/17/24] PFSH Medical History (Updated 02/17/24 @ 21:[address] Tushar López MD) Asthma GERD (gastroesophageal reflux disease) Osteopenia Surgical History (Updated 11/29/23 @ 13:35 by Sheila Jules) History of surgery on arm Family History (Updated 02/17/24 @ 09:51 by Morenita Kong) Sister Breast cancer Social History Smoking Status: Never smoker HPI HPI HPI: Patient is a 74-year-old female who presents for need to schedule diagnostic colonoscopy secondary to frequent bleeding with bowel movements. They are referred for surgical consultation from Dr. Swanson. Patient has had prior colonoscopy which she estimates occurred greater than 10 years ago at [facility]. She recalls being given a clean report without polyps. In the subsequent years she has undergone Cologuard testing that was all uneventful. They describe their bowel habits as generally regular. They have approximately 1-4 bowel movements per day in the morning and spend roughly a few minutes minutes on the toilet with occasional significant straining. They have noticed recent bleeding and recalls 2 episodes in particular once [place] She repeatedly references that she has no history of hemorrhoids but suspect that the bleeding was from hemorrhoids. In addition to the bleeding she has noticed some sacroiliac joint soreness. She denies a suspicion of hemorrhoids and jointly denies any itching, throbbing pain, or bulging of tissue. She does share that the blood seems to coat the outside of the stool rather than being found within the stool. They do regularly take fiber supplements. They do consume significant fiber in their regular diet. Patient has a family history of colon cancer in a first cousin who she recalls was diagnosed either their 20s or 30s. The patient's weight is steadily increasing since menopause. The patient has not prescribed anticoagulants/blood thinners. Relevant prior abdominal surgical history includes: None Patient does have a significant history of GERD and hiatal hernia. She shares that her hiatal hernia was diagnosed somewhere around 20 years ago and esophagram. She also shares that she has undergone EGD evaluation to further investigate her symptoms, however, she confirms that her symptoms are well-controlled on PPI therapy and she denies any reflux or swallowing difficulty while on this medication. She does note that she consciously tries to eat less and minimize any spice. She specifically denies any history of Leary's esophagus. ROS Musc Musculoskeletal: Yes back problems Resp Respiratory: Yes shortness of breath and Yes asthma Gastro Gastrointestinal: Yes nausea or vomiting, Yes blood in stool and Yes acid reflux Additional Details: Taking omeprazole for acid reflux Exam Const General: cooperative and comfortable Orientation: alert, awake and oriented x3 Resp Effort & Inspection: normal respiratory effort GI Other: No scars, nondistended, soft, nontender to palpation x 4 quadrants Assessment and Plan Assessment and Plan (1) Bright red rectal bleeding: Status: Acute Comment: Patient is a 74-year-old female who presents for consultation related to a complaint of bright red blood per rectum. She estimates she has had the symptoms over the past 1 year., However she has noticed to more significant symptoms of bleeding. Etiology is undetermined but patient has suspected hemorrhoid disease. Based on her description is certainly could be related to bleeding internal hemorrhoids. Thus I have counseled her that I would recommend her consenting to endoscopic banding but ultimately plan for a diagnostic colonoscopy to further evaluate. It has been over 10 years since her last colonoscopic evaluation. Plan: Plan will be to complete colonoscopy on first mutually agreeable date under local MAC. Pre-procedure prep discussed and paper instructions provided. Patient is also made aware that she will need to have a flatbed truck driver with her the day of the procedure. I have examined the patient the following changes are noted: Patient shares that she has had no further bleeding per rectum since our visit. She also confirms that she tolerated the prep well and that her output is now clear. She denies any abdominal discomfort and her exam is benign as well. Will now proceed to the endoscopy suite for planned colonoscopy given a recent history of bright red blood per rectum.
--- NOTE | 2024-03-11 10:09 | OP.COLON_ITS ---
Patient Name: Tuyet De La Rosa Procedure Date: 03/11/2024 9:20 AM Date of : 1950 Age: 74 Procedure: Colonoscopy Indications: Rectal bleeding Providers: Tushar López MD Medicines: See the Anesthesia note for documentation of the administered medications Patient Profile: Last Colonoscopy: 10 years ago. Complications: Scope trauma Procedure: Pre-Anesthesia Assessment: - The heart rate, respiratory rate, oxygen saturations, blood pressure, adequacy of pulmonary ventilation, and response to care were monitored throughout the procedure. After I obtained informed consent, the scope was passed under direct vision. Throughout the procedure, the patient's blood pressure, pulse, and oxygen saturations were monitored continuously. The pediatric colonoscope was introduced through the anus and advanced to the sigmoid colon. The colonoscopy was technically difficult and complex due to a tortuous colon. Successful completion of the procedure was aided by using scope torsion. The patient tolerated the procedure well. The quality of the bowel preparation was good. Scope In: 9:39:43 AM Scope Out: 10:00:57 AM Total Procedure Duration Time 0 hours 21 minutes 14 seconds Findings: The perianal and digital rectal examinations were normal. The sigmoid colon was significantly tortuous. Advancing the scope required using scope torsion. A localized area of severely friable mucosa with contact bleeding was found in the sigmoid colon. To repair the defect, the tissue edges were approximated and two hemostatic clips were successfully placed. Closure of the defect was successful. There was no bleeding at the end of the procedure. Internal hemorrhoids were found during retroflexion. The hemorrhoids were Grade I (internal hemorrhoids that do not prolapse). No biopsies or other specimens were collected for this exam. Impression: - Tortuous colon. - Friability with contact bleeding in the sigmoid colon. Clips were placed. - Internal hemorrhoids. No specimens collected. - The procedure was aborted due to the unusual difficulty of the procedure. Recommendation: - Discharge patient to home (via wheelchair). - Low fiber diet today. - Continue present medications. - Repeat colonoscopy in 1 month because the examination was incomplete. - Telephone my office for study results in 1 week. Procedure Code(s): --- Professional --- 59970, 53, Colonoscopy, flexible; diagnostic, including collection of specimen(s) by brushing or washing, when performed (separate procedure) Diagnosis Code(s): --- Professional --- K92.2, Gastrointestinal hemorrhage, unspecified K64.0, First degree hemorrhoids K62.5, Hemorrhage of anus and rectum Q43.8, Other specified congenital malformations of intestine CPT copyright 2021 [employer]. All rights reserved. The codes documented in this report are preliminary and upon geriatric assistant review may be revised to meet current compliance requirements. Tushar López MD 03/11/2024 10:09:34 AM This report has been signed electronically. Number of Addenda: 0 Note Initiated On: 03/11/2024 9:20 AM
--- NOTE | 2024-03-11 10:10 | OP.CCLET_ITS ---
03/11/2024 Adi Swanson Md Re : Colonoscopy procedure for Tuyet De La Rosa Dear Kiki This procedure was performed on Monday, March 11, 2024. My impressions and recommendations are as follows: Impressions : - Tortuous colon. - Friability with contact bleeding in the sigmoid colon. Clips were placed. - Internal hemorrhoids. No specimens collected. - The procedure was aborted due to the unusual difficulty of the procedure. Recommendations : - Discharge patient to home (via wheelchair). - Low fiber diet today. - Continue present medications. - Repeat colonoscopy in 1 month because the examination was incomplete. - Telephone my office for study results in 1 week. My findings are described in the full procedure note, which is enclosed. If I can be of further assistance, please feel free to contact me at Doctor phone number(s): , Work: . Sincerely, Tushar López MD 03/11/2024 10:09:34 AM This report has been signed electronically.
--- NOTE | 2024-03-11 11:57 | CT_ITS ---
STUDY: CT ABDOMEN AND PELVIS WITH CONTRAST REASON FOR EXAM: Female, 74 years old. s/p c scope with sigmoid mucosal tear and pain RADIATION DOSAGE (If Supplied By Facility): CTDIvol = ( 17.62 ) mGy, DLP = ( 878.02 ) mGycm TECHNIQUE: Transaxial images were obtained from the dome of the diaphragm to the symphysis pubis without oral contrast. IV 100mL Isovue-300 was administered. Sagittal and coronal images were reconstructed. Individualized dose optimization techniques were used for this CT. COMPARISON: None. FINDINGS: There is evidence of a pneumopericardium. Medial right-sided pneumothorax. Bibasilar atelectasis. Free intraperitoneal air. Air is also seen in the retroperitoneum worse on the right side. Air is seen within the pelvis. There is decreased attenuation of the liver consistent with steatosis. Normal gallbladder and extrahepatic biliary system. Normal spleen. Normal pancreas. Normal bilateral adrenal glands. Normal right kidney. Normal left kidney. Normal visualized stomach. Normal small intestine. There are scattered colonic diverticula consistent with diverticulosis. A metallic clip is seen at the rectosigmoid junction. The appendix is visualized and appears normal. Normal abdominal aorta. Normal inferior vena cava. Normal urinary bladder. Normal abdominal wall. There are diffuse degenerative changes of the visualized lumbar spine. CT/Abdomen/Pelvis W IV Cont ONLY IMPRESSION: Diffuse intraperitoneal and retroperitoneal air as described. Normal pericardium. Right medial pneumothorax. Bibasilar atelectasis. Fatty infiltration of the liver. Electronically Signed: Dhiraj Bliss MD at 13:20 EDT ,
[2024-03-11] MEDS: Ketorolac 15 MG/ML Vial IV (12:03)
[2024-03-11] MEDS: Piperacil/Tazobactam 3.375 GM in 0.9% Normal Saline (50mL MB+) 50 ML IV ×2 (13:46→21:44)
--- NOTE | 2024-03-11 13:53 | PCM.HP.STD ---
HPI - General General Date of Service: 03/11/24 HPI Narrative EVELIN HAMMOND, is a 74 F who presents [facility] Medical History (Updated 03/09/24 @ 10:45 by Velma Lehman) Wears dentures Wears glasses Post-menopausal Arthritis High cholesterol History of hiatal hernia Gastric reflux Non-smoker History of stress test History of irregular heartbeat GERD (gastroesophageal reflux disease) Osteopenia Asthma Home Medications ?Medication ?Instructions ?Recorded ?Last Taken ?Type escitalopram oxalate 5 mg tablet 5 mg PO DAILY 02/17/24 Unknown History montelukast 10 mg tablet 10 mg PO DAILY 02/17/24 Unknown History omeprazole 20 mg capsule,delayed 20 mg PO DAILY PRN GERD 02/17/24 Unknown History release rosuvastatin 10 mg tablet 10 mg PO DAILY 02/17/24 Unknown History albuterol sulfate 90 mcg/actuation 1 puff inhalation Q4H PRN PRN 03/09/24 Unknown History aerosol inhaler wheezing alendronate 70 mg tablet 70 mg PO QWEEK 03/09/24 Unknown History Allergy/AdvReac Type Severity Reaction Status Date / Time No Known Allergies Allergy Verified 03/11/24 08:49 Family History (Updated 02/17/24 @ 09:51 by Morenita Kong) Sister Breast cancer Surgical History (Updated 11/29/23 @ 13:35 by Sheila Jules) History of surgery on arm Social History Smoking Status: Never smoker Vital Signs Vital Signs Vital Signs: 03/11/24 08:49 03/11/24 08:49 03/11/24 10:12 Temperature 97.4 F L 97.9 F Temperature Source Temporal Temporal Pulse Rate 80 76 Respiratory Rate 16 14 Respiratory Pattern Normal Normal Blood Pressure 124/73 H 106/59 L Blood Pressure Mean 90 74 Blood Pressure Source Monitor Monitor Blood Pressure Position Semi-Fowlers Semi-Fowlers Blood Pressure Location Left Arm Right Arm Baseline BP 124/73 Pulse Ox 97 93 Oxygen Delivery Method Room Air Nasal Cannula Oxygen Flow Rate (L/min) 4 03/11/24 10:15 03/11/24 10:20 03/11/24 10:25 Temperature 97.6 F L Temperature Source Temporal Pulse Rate 75 70 72 Respiratory Rate 14 18 18 Respiratory Pattern Blood Pressure 107/53 L 102/58 L 118/73 Blood Pressure Mean 71 72 88 Blood Pressure Source Monitor Monitor Monitor Blood Pressure Position Left Lateral Semi-Fowlers Semi-Fowlers Blood Pressure Location Right Arm Right Arm Right Arm Baseline BP 124/73 124/73 124/73 Pulse Ox 93 96 93 Oxygen Delivery Method Nasal Cannula Room Air Room Air Oxygen Flow Rate (L/min) 2 2 03/11/24 10:50 03/11/24 11:14 Temperature Temperature Source Pulse Rate 62 Respiratory Rate 16 Respiratory Pattern Normal Blood Pressure 104/50 L Blood Pressure Mean 68 Blood Pressure Source Monitor Blood Pressure Position Left Lateral Blood Pressure Location Right Arm Baseline BP 124/73 Pulse Ox 91 Oxygen Delivery Method Room Air Oxygen Flow Rate (L/min) Weight Weight: 158 lb 11.725 oz Body Mass Index (BMI) 29.9 Results Imaging Radiology Impression Abdomen/Pelvis CT 03/11/24 11:57 IMPRESSION: Diffuse intraperitoneal and retroperitoneal air as described. Normal pericardium. Right medial pneumothorax. Bibasilar atelectasis. Fatty infiltration of the liver. Electronically Signed: Dhiraj Bliss MD at 13:20 EDT ,
--- NOTE | 2024-03-11 13:57 | PCM.PN.BLA ---
Progress Note As noted in my procedure note, during the course of the patient's diagnostic colonoscopy I attempted to get flexion for a hairpin tortuosity of the sigmoid colon and this resulted in mucosal rent. I at that point tried to reposition the patient for another approach at this turn and simply and reexamining the area (not going past the area) noted that it had propagated on the account of the insufflation pressures from our exam. Thus I immediately requested the assistance of gastroenterology in the room and together we endoscopically closed this mucosal rent with clips. Thereafter I completed another exam for another patient but was summoned to patient's preprocedure room due to complaints of ongoing abdominal discomfort. Patient stated that it was particularly uncomfortable when she got up to move around and remained mildly distended but somewhat softer. Upon my examination I was mildly concerned for peritonitis but felt that this was most likely retained gas from the procedure. Given our findings, however during the procedure I felt it most prudent- in the abundance of caution- to have the patient go through CT imaging of the abdomen pelvis with intravenous contrast. Upon completion of this imaging I reviewed the images myself and identified both pneumoperitoneum as well as pneumoretroperitoneum consistent with a transmural injury of the colon. With his recognition I went immediately to the preprocedure room where patient was returned from the CAT scan imaging and discussed these findings with both her and her spouse. I referenced the original CAT scan images to try to facilitate understanding as well as a diagram that had been used to illustrate the colonoscopic findings. After presenting this information I recommended proceeding emergently to the operating room for diagnostic laparoscopy with primary colonic repair versus laparoscopic sigmoidectomy with plans for primary anastomosis but also consented the patient for the possibility of a diverting ostomy. Additionally I shared with patient and her that it was favorable she had completed a bowel prep for today's procedure as this should minimize the risk for bacterial contamination to the degree. I informed them that a postoperative recovery stay in the hospital would be required and gave a best guess estimate as to the patient's convalescence inpatient. A nurse was present to witness this conversation and facilitate understanding amongst the patient and her spouse. After this consent process patient was initiated on empiric IV antibiotics with 3.375 Zosyn and the operating room was notified. Also about this time I received a phone call from radiology concerned that patient exhibited signs of pneumoperitoneum, pneumoretroperitoneum and the possibility of air within the pericardial sac. On hearing this concern I returned to a computer terminal where I could review the images again myself and instead of identifying pericardial air identified medial mediastinal air and went to radiology to confirm that this was there observation as well. Radiology did acknowledged their agreement and I will now return to the operating area to plan to do take the patient emergently for procedure this discussed and consented above.
--- NOTE | 2024-03-11 17:30 | PCM.OPRPT ---
Report of Operation Date of Procedure: 03/11/24 Pre-Operative Diagnosis: Colonoscopy complicated by mucosal tear and subsequent finding of pneumoperitoneum Post-Operative Diagnosis: Colonoscopy complicated by mucosal tear and subsequent finding of pneumoperitoneum without evidence of leakage from iatrogenic colon injury Surgery/Procedure Performed:: 1. Diagnostic laparoscopy with drain placement 2. Intraoperative flexible sigmoidoscopy Description of Surgical Findings:: ? Evidence of pneumoperitoneum upon peritoneal entry ? 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 Well perfused and otherwise grossly well?appearing sigmoid colon without evidence of perforation ? Negative air leak with sigmoidoscopy Surgeon: Tushar López funeral home attendant: Radha Milian funeral home attendant: Tanya Melton Type of Anesthesia: General/Supplemental Anesthesiologist: Varun Jacinto Drains: 15 Andorran round Bowen drain Estimated Blood Loss (mL): 20 Description of Procedure: Patient was brought to the operating room where she was positioned supine on the operating room table. She underwent induction with general endotracheal anesthetic. She had been previously administered 3.375 IV Zosyn in the holding area upon recognizing the radiographic finding of pneumoperitoneum. A urinary catheter was placed with sterile technique. SCDs were placed on bilateral lower extremities. She was positioned in stirrups and patient's abdomen was prepped and draped in usual sterile fashion. A formal timeout followed to confirm patient and the procedure. The procedure was begun with an supraumbilical incision carried down to the fascia which was elevated between clamps and sharply incised. There was a perceptible egress of air once this incision was made. A finger sweep confirmed peritoneal entry and a 12 mm Llamas balloon trocar was placed. The abdomen was inspected and revealed no inadvertent injury from our port placement. Abdomen was insufflated to a set pressure of 15 mmHg. Further inspection of the peritoneum revealed several adhesions between the right colon and the lateral sidewall as well as significant pneumatosis throughout much of the cecal mesentery (and some subserosal intervals) as well as the ascending colon mesentery. I then placed 5 mm ports in the right lower quadrant, right upper quadrant, and left lateral abdominal quadrant under laparoscopic visualization to facilitate further exploration. The patient was positioned Trendelenburg with the left side down and I began to inspect the peritoneum. The attachments to the right colon on the lateral abdominal wall were taken down with the use of LigaSure energy while maintaining safe distance to the colon wall to prevent thermal injury. This was done to facilitate a more thorough inspection of the integrity of the colon. Overall the colon appeared to be intact but mildly dilated and there were no signs of perforation laterally. The sigmoid colon was then identified in the left lower quadrant and followed into the pelvis behind the uterus where it appeared benign, well-perfused, and otherwise healthy without any evidence of perforation. At this point I performed a leak test of patient's sigmoid colon given her endoscopic finding of a mucosal rent. The patient's pelvis was filled with saline from our laparoscopic suction security developer and I performed a limited flexible sigmoidoscopy with the sigmoid occluded proximally by laparoscopic grasper as I inserted the endoscope transanally. Carefully the scope was advanced with insufflation until I could visualize the patient's clips including the mucosal rent. These clips appeared to be intact as originally positioned and there was no evidence of bubbling from our insufflation underneath the water line laparoscopically as this process was observed. The scope was thus removed and I broke scrub and took my findings to patient's family where I suggested we could consider a right hemicolectomy given the findings of pneumatosis versus a more conservative approach with drain placement and ongoing observation given the possibility that the pneumatosis coli may resolve spontaneously. (I also conferenced with my partners via telephone to discuss the treatment options given the rarity of the situation). After a series of illustrations using hand drawings by me, patient's returned an answer that he wished to pursue the more conservative route. I then returned to the operating room where I laparoscopically placed a 15 Andorran round Bowen drain through the patient's right lower quadrant port site and positioned laparoscopically within the retrouterine space adjacent to the sigmoid colon for ongoing monitoring/drainage. This drain was secured at the skin using a 3-0 nylon suture. Pneumoperitoneum was released and patient's abdominal fascia was closed at the supraumbilical 12 mm port site. Additional local anesthetic was infiltrated above the fascia. Lastly the skin of each port site was closed using subcuticular technique with 4-0 Monocryl. OpSite dressings were applied and the patient was extubated and taken to PACU for ongoing recovery. Patient's Cespedes catheter maintained for ongoing monitoring of accurate ins and outs. Complications None Admit VTE Documentation VTE Mechan Device Prophylaxis: SCD's
[2024-03-11] MEDS: Bupivacaine 0.25% 30 ML Vial (17:32)
[2024-03-11] MEDS: Ipratropium/Albuterol Sulfate 3 ML AMPUL.NEB INHALATION (18:31)
[2024-03-11] MEDS: 0.9% Normal Saline (1000mL) 1,000 ML 125 ML IV (19:51)
[2024-03-11] MEDS: HYDROmorphone 0.5 MG/0.5 ML SYRINGE IV ×2 (19:52→23:46)
[2024-03-12] VITALS (7 sets, daily range): BP systolic 96–115; BP diastolic 43–76; PULSE 79–95; RESP 16–18; TEMP 36.6–37.3; O2SAT 92–98
[2024-03-12] MEDS: 0.9% Normal Saline (1000mL) 1,000 ML 125 ML IV ×2 (03:32→14:00)
[2024-03-12] MEDS: Piperacil/Tazobactam 3.375 GM in 0.9% Normal Saline (50mL MB+) 50 ML IV ×3 (05:05→21:27)
[2024-03-12 06:50] LABS: Absolute Lymphocyte Count 1.31 X10^3/uL (0.83-4.51); Absolute Neutrophil Count 13.1 X10^3/uL (2.0-7.7); Basophil# 0.02 X10^3/uL; Basophil% 0.1 % (0-1); Hematocrit 39.4 % (37-47); Hemoglobin 12.5 g/dL (12.0-15.0); Lymphocyte # 1.31 X10^3/ul (0.83-4.51); Lymphocyte % 8.7 % (19-41); Mean Corp Hgb Conc 31.7 g/dL (32-36); Mean Corpuscular Hgb 28.5 pg (27.0-32.0); Mean Corpuscular Volume 89.7 fL (81-99); Mean Platelet Vol. 9.5 fl (6.2-12.0); Monocyte# 0.53 X10^3/uL; Monocyte% 3.5 % (0-10); NRBC Flagged by Analyzer 0 % (0-5); Neutrophil # 13.14 X10^3/uL (2.7-7.7); Neutrophil % 87.2 % (47-70); Platelet Count 250 K/mm3 (150-450); RBC Distribution Width CV 13.3 % (11.6-14.6); RBC Distribution Width SD 43.9 fl (35.1-43.9); Red Blood Count 4.39 M/mm3 (4.2-5.4); White Blood Count 15.1 K/mm3 (4.4-11.0)
--- NOTE | 2024-03-12 07:00 | CT_ITS ---
STUDY: CT ABDOMEN AND PELVIS WITH CONTRAST REASON FOR EXAM: Female, 74 years old. Pneumoperitoneum s/p colonoscopy RADIATION DOSAGE (If Supplied By Facility): CTDIvol = ( 15.70 ) mGy, DLP = ( 873.21 ) mGycm TECHNIQUE: Transaxial images were obtained from the dome of the diaphragm to the symphysis pubis with oral contrast. Oral and amp; IV Gastrografin and amp; 100mL Isovue-370 was administered. Sagittal and coronal images were reconstructed. Individualized dose optimization techniques were used for this CT. COMPARISON: Comparison is made with prior examination dated March 11, 2024. FINDINGS: Since prior study, there has been a decrease in the amount of the pneumomediastinum. There is persistent atelectasis and/or infiltrate at the lung bases more prominent on the right side. The visualized portions of the heart are within normal limits. There has been decrease in the amount of free air within the peritoneal cavity as well as in the retroperitoneum more prominent on the right side. A drainage tube has been placed with the tip in the pelvis. Normal liver. Normal gallbladder and extrahepatic biliary system. Normal spleen. Normal pancreas. Normal bilateral adrenal glands. Normal right kidney. Normal left kidney. Normal visualized stomach. Normal small intestine. There is evidence of a pneumatosis coli within the wall of the sigmoid colon. There is no evidence of extravasation of contrast material from the colon. There is evidence of a mural thickening of the sigmoid colon. Normal abdominal aorta. Normal inferior vena cava. Residual air within the retroperitoneum more prominent on the right side. Normal urinary bladder. Normal abdominal wall. There are degenerative changes of the visualized lumbar spine. CT/Abdomen/Pelvis WITH Contrast IMPRESSION: Interval improvement in the amount of free air within the abdomen as well as in the retroperitoneal region. Pneumatosis coli seen in the wall of the sigmoid colon. A drainage catheter is seen within the pelvis. Residual pneumomediastinum. Bibasilar atelectasis and/or infiltrates more prominent at the right lung base. Electronically Signed: Dhiraj Bliss MD at 10:16 EDT ,
[2024-03-12 07:08] LABS: ALB/GLOB Ratio 0.9 RATIO (0.9-2.4); AST(SGOT) 28 U/L (15-37); Alanine Aminotransfer ALT/SGPT 29 U/L (13-56); Alkaline Phosphatase 50 U/L (45-117); Anion Gap 5 (5-15); BUN 9 mg/dL (7-18); BUN/Creat Ratio 10.1 RATIO (10-20); Calcium,Total 8.1 mg/dL (8.5-10.1); Chloride 109 mmol/L (98-107); Creatinine, Serum 0.89 mg/dL (0.55-1.02); EST Glomerular Filtration Rate 66 mL/min (>60); Est Glom Filt Rate - Afr Amer 80 mL/min (>60); Estimated Creatinine Clearance 51.08 ml/min; Globulin 3.5 g/dL (2.2-4.2); Glucose 118 mg/dL (74-106); Phosphorus 3.5 mg/dL (2.5-4.9); Potassium 4.1 mmol/L (3.5-5.1); Protein, Total 6.5 g/dL (6.4-8.2); Sodium Level 139 mmol/L (136-145)
[2024-03-12 07:11] LABS: Lactic Acid 1.6 mmol/L (0.4-1.9)
--- NOTE | 2024-03-12 07:25 | NURSING ---
oral contrast arrived from CT, pt currently drinking 1st bottle of CT contrast, 2nd bottle of contrast to be given at 0830
--- NOTE | 2024-03-12 07:53 | PN.SURG_ITS ---
Subjective Subjective Patient seen and examined during AM rounds. She is found walking about her room. She states that she has some abdominal discomfort but is overall improved. Her is eager to see when her CAT scan will be done. Objective Data Objective Data Vital Signs: Vital Signs Temp Pulse Resp BP Pulse Ox O2 Del Method O2 Flow Rate 98.3 F 79 16 96/76 93 Room Air 2 03/12/24 05:43 03/12/24 05:43 03/12/24 05:43 03/12/24 05:43 03/12/24 05:43 03/12/24 05:43 03/12/24 03:23 Oxygen Flow Rate (L/min) 2 Oxygen Delivery Method Room Air Weight: 158 lb 11.725 oz Body Mass Index (BMI) 29.9 Intake & Output: Intake and Output for Last 24 Hours 03/10/24 03/11/24 03/12/24 23:59 23:59 23:59 Intake Total 1550 / 1550 1010.42 / 1010.42 Output Total 655 / 655 250 / 250 Balance 895 / 895 760.42 / 760.42 Lab / Micro Data 03/12/24 06:27 03/12/24 06:27 Labs: Laboratory Results - last 24 hr 03/12/24 06:27: WBC 15.1 H, RBC 4.39, Hgb 12.5, Hct 39.4, MCV 89.7, MCH 28.5, M CHC 31.7 L, RDW Std Deviation 43.9, RDW Coeff of Eunice 13.3, Plt Count 250, MPV 9.5, Immature Gran % (Auto) 0.500, Neut % (Auto) 87.2 H, Lymph % (Auto) 8.7 L, [place] % (Auto) 3.5, Eos % (Auto) 0.0, Baso % (Auto) 0.1, Absolute Neuts (auto) 13.1 H, Absolute Lymphs (auto) 1.31, Nucleated RBC % 0, Sodium 139, Potassium 4.1, Chloride 109 H, Carbon Dioxide 25.0, Anion Gap 5, BUN 9, Creatinine 0.89, Estim Creat Clear Calc 51.08, Est GFR (MDRD) Af Amer 80, Est GFR (MDRD) Non-Af 66, BUN/Creatinine Ratio 10.1, Glucose 118 H, Lactic Acid 1.6, Calcium 8.1 L, Phosphorus 3.5, Magnesium 2.0, Total Bilirubin 0.70, AST 28, ALT 29, Alkaline Phosphatase 50, Total Protein 6.5, Albumin 3.0 L, Globulin 3.5, Albumin/Globulin Ratio 0.9 Radiography Diagnostic Testing: Radiology Impression Abdomen/Pelvis CT 03/11/24 11:57 IMPRESSION: Diffuse intraperitoneal and retroperitoneal air as described. Normal pericardium. Right medial pneumothorax. Bibasilar atelectasis. Fatty infiltration of the liver. Electronically Signed: Dhiraj Bliss MD at 13:20 EDT , Physical Exam Const oriented x3 and no apparent distress Resp normal respiratory effort GI GI Narrative: Operative dressings intact, mildly distended, appropriately tender to palpation about incision sites, operative drain in right lower quadrant with some serosanguineous output and clot in the tubing that is removed. Bladder / Kidney Exam: catheter in place urethral Assessment & Plan Assessment/Plan (1) Pneumoperitoneum: (2) Perforation of sigmoid colon: (3) Pneumatosis coli: PLAN: Plan Patient is a 74-year-old female who is postoperative day 1 from diagnostic laparoscopy with drain placement and flexible sigmoidoscopy after she was noted to have increasing pain and evidence of pneumoperitoneum on CT following diagnostic colonoscopy. Today she reports some improvement in her abdominal discomfort has remained clinically stable. Noted that she has a mild leukocytosis of 15,000. She is pending repeat CT today with oral and IV contrast. I am looking for any evidence of extravasation with a leak. If none is found we will advance her to a clear liquid diet. ? Continue empiric Zosyn therapy ? Continue Cespedes catheter for now (may remove it if CT benign) ? Continue drain Tushar López MD General Surgery Endocrine Surgery Pager: [facility] [address] [place] [address], [facility], [address] [place] [address] Office: [phone] Charges/Coding Visit Charges Inpatient E&M: [id number] [facility] L1
--- NOTE | 2024-03-12 09:00 | RAD_ITS ---
STUDY: X-RAY - ABDOMEN/PELVIS REASON FOR EXAM: Female, 74 years old. f/u contrast ingestion TECHNIQUE: Single AP view of the abdomen / pelvis. COMPARISON: None. FINDINGS: Findings suggestive of a right basilar pneumothorax. Free air is seen within the abdomen as well as in the retroperitoneum more prominent on the right side. 2 metallic clips are seen in the region of the sigmoid colon. Small amount of free air is also seen in the pelvis more prominent on the right side. A drainage tube is seen with the tip in the pelvis. The visualized liver, spleen and kidneys are grossly normal in size and morphology. Normal soft tissue structures. There are diffuse degenerative changes of the visualized lumbar spine.
[2024-03-12] MEDS: Ketorolac 15 MG/ML Vial IM (09:15)
[2024-03-12] MEDS: 0.9% Saline Lock 10 ML Syringe IV (09:16)
[2024-03-12] MEDS: Pantoprazole Sodium 40 MG in 0.9% Normal Saline (100mL MB+) 100 ML 330 MG IV (09:17)
--- NOTE | 2024-03-12 09:26 | NURSING ---
pt off unit in radiology-pt sipping 2nd bottle of contrast-sent w/pt to x-ray
--- NOTE | 2024-03-12 14:45 | CASEMGMT ---
RN?CM?PLASTICS NURSE?CM?to room to meet with patient for initial transition planning/care coordination?assessment.?RN?CM?introduced self and role at [facility].? Pt voices understanding and consents to?assessment?at this time.? Pt sitting up in chair in room in no distress at this time.? Pt is A/O at this time and answers all questions appropriately.?? Care providers, pharmacy, and demographics verified/updated at this time. PCP: Dr Swanson Specialists:Dr López-surgeon. Pt also goes to chiropractor. Preferred Pharmacy: [facility] [facility] Insurance:[employer] Prescription Benefit:?yes Living Will/HPOA:?Has both LW and HCPOA, who is her . 1st alternative is dtr, Kyleigh LNOK: , Rip. 1 daughter, Kyleigh. 3 sons. Living Arrangements: Lives w/her in 2-story home w/3-4 steps to enter. Bathroom and bedroom on 2nd floor--pt denies difficulty w/stairs. No bathroom on main floor. States is indep w/ADL's and IADL's. She states her and her are very active. Transportation:?Pt states drives self and states no transportation concerns at this time.? also drives. DME: ? Denies using any DME and denies needs.? HHC/SNF:No hx of either. No needs identified. Pt declines need for HHC or OP therapy. Pt wishes to return home and states has no concerns with going home at time of discharge.? CM?to follow for any discharge planning/needs.? Pt voices no further concerns/needs at this time.? Advised pt to ask for?CM?if any further questions/concerns/needs arise.? Voices understanding. PLAN:??Home Gustavo BSN?RN?CM
[2024-03-12] MEDS: HYDROmorphone 0.5 MG/0.5 ML SYRINGE IV (14:51)
--- NOTE | 2024-03-12 15:55 | CHAPLAIN ---
Type of Pastoral Visit _x__ Initial Visit ___ Follow-up Visit ___ On-call Visit ___ General Patient Visit ___ Spiritual Assessment ___ Family Conference ___ Bereavement ___ Rapid Response ___ Code Blue ___ Other (describe below) Pastoral Care Referral From _x__ Patient ___ Family ___ Nurse ___ Physician ___ Field Counsel ___ Nnp ___ Other (describe below) Sacrament/Intervention ___ Active listening ___ Anointing ___ Congregational ___ Bereavement ___ Communion ___ Vonnie exploration ___ ___ Life review ___ Prayer ___ Reconciliation ___ Sacrament of Sick _x__ Supportive presence ___ Wedding ___ Other (describe below) Pastoral Comments patient reports feeling better and has good family support; pt can't think of anything you can do
[2024-03-12] MEDS: Acetaminophen 325 MG Tablet 650 MG PO (21:20)
[2024-03-12] MEDS: 0.9% Normal Saline (1000mL) 1,000 ML 75 ML IV (21:27)
[2024-03-12] MEDS: MELATONIN 10 MG TABLET PO (23:57)
[2024-03-13] VITALS (7 sets, daily range): BP systolic 105–123; BP diastolic 47–66; PULSE 78–88; RESP 16; TEMP 36.8; O2SAT 86–100
[2024-03-13] MEDS: Acetaminophen 325 MG Tablet 650 MG PO ×3 (04:26→18:16)
[2024-03-13] MEDS: Piperacil/Tazobactam 3.375 GM in 0.9% Normal Saline (50mL MB+) 50 ML IV ×2 (05:44→13:26)
[2024-03-13 07:12] LABS: Absolute Lymphocyte Count 1.15 X10^3/uL (0.83-4.51); Absolute Neutrophil Count 10.2 X10^3/uL (2.0-7.7); Basophil# 0.04 X10^3/uL; Basophil% 0.3 % (0-1); Eosinophil# 0.06 X10^3/uL; Eosinophils% 0.5 % (0-5); Hematocrit 35.5 % (37-47); Hemoglobin 11.4 g/dL (12.0-15.0); Lymphocyte # 1.15 X10^3/ul (0.83-4.51); Lymphocyte % 9.6 % (19-41); Mean Corp Hgb Conc 32.1 g/dL (32-36); Mean Corpuscular Hgb 28.8 pg (27.0-32.0); Mean Corpuscular Volume 89.6 fL (81-99); Mean Platelet Vol. 9.3 fl (6.2-12.0); Monocyte# 0.49 X10^3/uL; Monocyte% 4.1 % (0-10); NRBC Flagged by Analyzer 0 % (0-5); Neutrophil # 10.16 X10^3/uL (2.7-7.7); Neutrophil % 85.1 % (47-70); Platelet Count 211 K/mm3 (150-450); RBC Distribution Width CV 13.7 % (11.6-14.6); RBC Distribution Width SD 45.1 fl (35.1-43.9); Red Blood Count 3.96 M/mm3 (4.2-5.4)
[2024-03-13 08:21] LABS: Anion Gap 12 (5-15); BUN 6 mg/dL (7-18); Calcium,Total 7.7 mg/dL (8.5-10.1); Chloride 110 mmol/L (98-107); Creatinine, Serum 0.67 mg/dL (0.55-1.02); EST Glomerular Filtration Rate 92 mL/min (>60); Est Glom Filt Rate - Afr Amer 112 mL/min (>60); Estimated Creatinine Clearance 56.83 ml/min; Glucose 114 mg/dL (74-106); Magnesium 2.1 mg/dL (1.6-2.6); Potassium 3.3 mmol/L (3.5-5.1); Sodium Level 142 mmol/L (136-145)
--- NOTE | 2024-03-13 09:38 | PN.SURG_ITS ---
Subjective Subjective Patient reports she is feeling painful still but better than yesterday. She has had several liquid bowel movements overnight.She denies any nausea or vomiting or fevers or chills. Objective Data Objective Data Vital Signs: Vital Signs Temp Pulse Resp BP Pulse Ox O2 Del Method O2 Flow Rate 98.2 F 78 16 112/47 L 97 Room Air 2 03/13/24 08:34 03/13/24 08:34 03/13/24 08:34 03/13/24 08:34 03/13/24 08:34 03/13/24 08:34 03/13/24 01:40 Oxygen Flow Rate (L/min) 2 Oxygen Delivery Method Room Air Weight: 158 lb 11.725 oz Body Mass Index (BMI) 29.9 Intake & Output: Intake and Output for Last 24 Hours 03/11/24 03/12/24 03/13/24 23:59 23:59 23:59 Intake Total 1550 / 1550 3668.67 / 3968.67 500 / 500 Output Total 655 / 655 280 / 985 765 / 765 Balance 895 / 895 3388.67 / 2983.67 -265 / -265 Lab / Micro Data 03/13/24 06:43 03/13/24 06:43 Labs: Laboratory Results - last 24 hr 03/13/24 06:43: WBC 12.0 H, RBC 3.96 L, Hgb 11.4 L, Hct 35.5 L, MCV 89.6, MCH 28.8, MCHC 32.1, RDW Std Deviation 45.1 H, RDW Coeff of Eunice 13.7, Plt Count 211, MPV 9.3, Immature Gran % (Auto) 0.400, Neut % (Auto) 85.1 H, Lymph % (Auto) 9.6 L, [place] % (Auto) 4.1, Eos % (Auto) 0.5, Baso % (Auto) 0.3, Absolute Neuts (auto) 10.2 H, Absolute Lymphs (auto) 1.15, Nucleated RBC % 0, Sodium 142, Potassium 3.3 L, Chloride 110 H, Carbon Dioxide 20.0 L, Anion Gap 12, BUN 6 L, Creatinine 0.67, Estim Creat Clear Calc 56.83, Est GFR (MDRD) Af Amer 112, Est GFR (MDRD) Non-Af 92, BUN/Creatinine Ratio 9.0 L, Glucose 114 H, Calcium 7.7 L, Phosphorus 2.0 L, Magnesium 2.1 Radiography Diagnostic Testing: Radiology Impression Abdomen/Pelvis CT 03/12/24 07:00 IMPRESSION: Interval improvement in the amount of free air within the abdomen as well as in the retroperitoneal region. Pneumatosis coli seen in the wall of the sigmoid colon. A drainage catheter is seen within the pelvis. Residual pneumomediastinum. Bibasilar atelectasis and/or infiltrates more prominent at the right lung base. Electronically Signed: Dhiraj Bliss MD at 10:16 EDT , KUB X-Ray 03/12/24 09:00 IMPRESSION: Free intraperitoneal air as well as retroperitoneal air more prominent on the right side of the abdomen with the pneumothorax seen at the base of the right hemithorax. A drainage tube is seen within the pelvis. 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 Her white count is coming down to 12 from 15. Continue observation with clear liquids until her pain is resolved and white count is returned to normal. Continue antibiotics and IV fluid. Vitals are all stable. Omar Cooper MD Pager: [facility] [address] [place] [address], [address] [place] [address] Office:
[2024-03-13] MEDS: Menthol/Lanolin/Calamine/Znox 113 GM Tube 1 APPLIC TOPICAL (09:58)
[2024-03-13] MEDS: Pantoprazole Sodium 40 MG in 0.9% Normal Saline (100mL MB+) 100 ML 330 MG IV (10:24)
[2024-03-13] MEDS: Potassium Phosphate 30 MM in 0.9% Normal Saline (250mL Bag) 250 ML 42 MM IV (11:10)
[2024-03-13] MEDS: 0.9% Normal Saline (1000mL) 1,000 ML 40 ML IV (13:27)
[2024-03-13] MEDS: HYDROmorphone 0.5 MG/0.5 ML SYRINGE IV (13:39)
[2024-03-14] MEDS: Menthol/Lanolin/Calamine/Znox 113 GM Tube 1 APPLIC TOPICAL ×3 (00:48→21:34)
[2024-03-14] MEDS: Piperacil/Tazobactam 3.375 GM in 0.9% Normal Saline (50mL MB+) 50 ML IV ×4 (00:48→21:34)
[2024-03-14 03:09] VITALS: BP 125/64; PULSE 77; RESP 16; TEMP 36.8; O2SAT 94
[2024-03-14] MEDS: Acetaminophen 325 MG Tablet 650 MG PO ×3 (04:17→18:38)
[2024-03-14 05:59] LABS: Absolute Lymphocyte Count 1.26 X10^3/uL (0.83-4.51); Absolute Neutrophil Count 6.4 X10^3/uL (2.0-7.7); Basophil# 0.03 X10^3/uL; Basophil% 0.4 % (0-1); Eosinophil# 0.16 X10^3/uL; Eosinophils% 1.9 % (0-5); Hematocrit 36.2 % (37-47); Hemoglobin 11.9 g/dL (12.0-15.0); Lymphocyte # 1.26 X10^3/ul (0.83-4.51); Lymphocyte % 15.2 % (19-41); Mean Corp Hgb Conc 32.9 g/dL (32-36); Mean Corpuscular Volume 88.1 fL (81-99); Mean Platelet Vol. 9.2 fl (6.2-12.0); Monocyte# 0.41 X10^3/uL; NRBC Flagged by Analyzer 0 % (0-5); Neutrophil % 77.3 % (47-70); Platelet Count 219 K/mm3 (150-450); RBC Distribution Width CV 13.5 % (11.6-14.6); RBC Distribution Width SD 43.9 fl (35.1-43.9); Red Blood Count 4.11 M/mm3 (4.2-5.4); White Blood Count 8.3 K/mm3 (4.4-11.0)
[2024-03-14 06:41] LABS: Anion Gap 4 (5-15); BUN 3 mg/dL (7-18); BUN/Creat Ratio 4.9 RATIO (10-20); Chloride 111 mmol/L (98-107); Creatinine, Serum 0.62 mg/dL (0.55-1.02); EST Glomerular Filtration Rate 101 mL/min (>60); Est Glom Filt Rate - Afr Amer 122 mL/min (>60); Estimated Creatinine Clearance 56.83 ml/min; Glucose 114 mg/dL (74-106); Phosphorus 1.8 mg/dL (2.5-4.9); Potassium 3.1 mmol/L (3.5-5.1); Sodium Level 140 mmol/L (136-145)
--- NOTE | 2024-03-14 06:43 | PN.SURG_ITS ---
Subjective Subjective Patient is more comfortable than yesterday. Denies nausea or vomiting. She is still having some liquid bowel movements and passing flatus. Says the pain is improved. Objective Data Objective Data Vital Signs: Vital Signs Temp Pulse Resp BP Pulse Ox O2 Del Method O2 Flow Rate 98.3 F 77 16 125/64 H 94 Room Air 2 03/14/24 03:09 03/14/24 03:09 03/14/24 03:09 03/14/24 03:03/14/24 03:03/14/24 03:09 03/13/24 01:40 Oxygen Flow Rate (L/min) 2 Oxygen Delivery Method Room Air Weight: 158 lb 11.725 oz Body Mass Index (BMI) 29.9 Intake & Output: Intake and Output for Last 24 Hours 03/12/24 03/13/24 03/14/24 23:59 23:59 23:59 Intake Total 3668.67 / 3968.67 2832.66 / 2832.66 550 / 550 Output Total 280 / 985 855 / 855 25 / Balance 3388.67 / 2983.67 1977.66 / 1977.66 525 / 525 Lab / Micro Data 03/14/24 05:35 03/14/24 05:35 Labs: Laboratory Results - last 24 hr 03/13/24 06:43: WBC 12.0 H, RBC 3.96 L, Hgb 11.4 L, Hct 35.5 L, MCV 89.6, MCH 28.8, MCHC 32.1, RDW Std Deviation 45.1 H, RDW Coeff of Eunice 13.7, Plt Count 211, MPV 9.3, Immature Gran % (Auto) 0.400, Neut % (Auto) 85.1 H, Lymph % (Auto) 9.6 L, Hendry % (Auto) 4.1, Eos % (Auto) 0.5, Baso % (Auto) 0.3, Absolute Neuts (auto) 10.2 H, Absolute Lymphs (auto) 1.15, Nucleated RBC % 0, Sodium 142, Potassium 3.3 L, Chloride 110 H, Carbon Dioxide 20.0 L, Anion Gap 12, BUN 6 L, Creatinine 0.67, Estim Creat Clear Calc 56.83, Est GFR (MDRD) Af Amer 112, Est GFR (MDRD) Non-Af 92, BUN/Creatinine Ratio 9.0 L, Glucose 114 H, Calcium 7.7 L, Phosphorus 2.0 L, Magnesium 2.1 03/14/24 05:35: WBC 8.3, RBC 4.11 L, Hgb 11.9 L, Hct 36.2 L, MCV 88.1, MCH 29.0, MCHC 32.9, RDW Std Deviation 43.9, RDW Coeff of Eunice 13.5, Plt Count 219, MPV 9.2, Immature Gran % (Auto) 0.200, Neut % (Auto) 77.3 H, Lymph % (Auto) 15.2 L, Hendry % (Auto) 5.0, Eos % (Auto) 1.9, Baso % (Auto) 0.4, Absolute Neuts (auto) 6.4, Absolute Lymphs (auto) 1.26, Nucleated RBC % 0, Sodium 140, Potassium 3.1 L , Chloride 111 H, Carbon Dioxide 25.0, Anion Gap 4 L, BUN 3 L, Creatinine 0.62, Estim Creat Clear Calc 56.83, Est GFR (MDRD) Af Amer 122, Est GFR (MDRD) Non-Af 101, BUN/Creatinine Ratio 4.9 L, Glucose 114 H, Calcium 8.0 L, Phosphorus 1.8 L Physical Exam Const oriented x3 and no apparent distress Resp normal respiratory effort GI soft to palpation Palpation: tender Assessment & Plan Assessment/Plan (1) Perforation of sigmoid colon: PLAN: Patient's tenderness is mostly at her incision sites. She is not having any nausea or vomiting. White count is returned normal. She is tolerating clears. Her drain is serous. She is saying she is having some burning in her pelvis when she urinates but saying is not her urethra. May be due to the drain abutting the bladder. I will start a regular diet today and if she tolerates this I will discharge her home tomorrow as long as white count stays normal and drain continues to be serous. Omar Cooper MD Pager: [facility] [address] [place] [address], [address] [place] [address] Office:
[2024-03-14 08:09] VITALS: PULSE 80
[2024-03-14 09:33] VITALS: BP 98/77; PULSE 82; RESP 16; TEMP 36.8; O2SAT 98
[2024-03-14] MEDS: Pantoprazole Sodium 40 MG in 0.9% Normal Saline (100mL MB+) 100 ML 330 MG IV (10:25)
[2024-03-14] MEDS: Potassium Phosphate 40 MM in 0.9% Normal Saline (500mL Bag) 500 ML 62.5 MM IV (11:06)
[2024-03-14 14:40] VITALS: BP 117/69; PULSE 79; RESP 20; TEMP 37.1; O2SAT 100
[2024-03-14 14:43] VITALS: PULSE 80
[2024-03-14 19:44] VITALS: BP 134/64; PULSE 82; RESP 18; TEMP 37.5; O2SAT 96
[2024-03-15] MEDS: Acetaminophen 325 MG Tablet 650 MG PO (00:53)
[2024-03-15 04:15] VITALS: BP 128/66; PULSE 67; RESP 16; TEMP 36.4; O2SAT 98
[2024-03-15 05:20] LABS: Absolute Lymphocyte Count 1.36 X10^3/uL (0.83-4.51); Absolute Neutrophil Count 5.8 X10^3/uL (2.0-7.7); Basophil# 0.04 X10^3/uL; Basophil% 0.5 % (0-1); Eosinophil# 0.26 X10^3/uL; Eosinophils% 3.2 % (0-5); Hematocrit 38.4 % (37-47); Hemoglobin 12.5 g/dL (12.0-15.0); Lymphocyte # 1.36 X10^3/ul (0.83-4.51); Lymphocyte % 16.7 % (19-41); Mean Corp Hgb Conc 32.6 g/dL (32-36); Mean Corpuscular Hgb 28.5 pg (27.0-32.0); Mean Corpuscular Volume 87.7 fL (81-99); Mean Platelet Vol. 9.3 fl (6.2-12.0); Monocyte# 0.65 X10^3/uL; NRBC Flagged by Analyzer 0 % (0-5); Neutrophil # 5.81 X10^3/uL (2.7-7.7); Neutrophil % 71.4 % (47-70); Platelet Count 248 K/mm3 (150-450); RBC Distribution Width CV 13.2 % (11.6-14.6); RBC Distribution Width SD 42.7 fl (35.1-43.9); Red Blood Count 4.38 M/mm3 (4.2-5.4); White Blood Count 8.1 K/mm3 (4.4-11.0)
[2024-03-15 05:54] LABS: Anion Gap 3 (5-15); BUN 5 mg/dL (7-18); BUN/Creat Ratio 7.9 RATIO (10-20); Calcium,Total 8.9 mg/dL (8.5-10.1); Chloride 110 mmol/L (98-107); Creatinine, Serum 0.63 mg/dL (0.55-1.02); EST Glomerular Filtration Rate 98 mL/min (>60); Est Glom Filt Rate - Afr Amer 118 mL/min (>60); Estimated Creatinine Clearance 56.83 ml/min; Glucose 105 mg/dL (74-106); Phosphorus 3.4 mg/dL (2.5-4.9); Potassium 3.3 mmol/L (3.5-5.1); Sodium Level 139 mmol/L (136-145)
[2024-03-15] MEDS: Piperacil/Tazobactam 3.375 GM in 0.9% Normal Saline (50mL MB+) 50 ML IV (06:00)
--- NOTE | 2024-03-15 08:22 | PCM.PN.SRG ---
Subjective Subjective Patient reports feeling comfortable. She has had another bowel movement. No nausea or vomiting and she tolerated regular diet. Objective Data Objective Data Vital Signs: Vital Signs Temp Pulse Resp BP Pulse Ox O2 Del Method O2 Flow Rate 97.6 F L 67 16 128/66 H 98 Room Air 2 03/15/24 04:15 03/15/24 04:15 03/15/24 04:15 03/15/24 04:15 03/15/24 04:15 03/15/24 04:15 03/13/24 01:40 Oxygen Flow Rate (L/min) 2 Oxygen Delivery Method Room Air Weight: 158 lb 11.725 oz Body Mass Index (BMI) 29.9 Intake & Output: Intake and Output for Last 24 Hours 03/13/24 03/14/24 03/15/24 23:59 23:59 23:59 Intake Total 2832.66 / 2832.66 1273.3333 / 1273.3333 350 / 350 Output Total 855 / 855 80 / 80 35 / 35 Balance 1976.66 / 1976.66 1193.3333 / 1193.3333 315 / 315 Lab / Micro Data 03/15/24 04:59 03/15/24 04:59 Labs: Laboratory Results - last 24 hr 03/15/24 04:59: WBC 8.1, RBC 4.38, Hgb 12.5, Hct 38.4, MCV 87.7, MCH 28.5, MCHC 32.6, RDW Std Deviation 42.7, RDW Coeff of Eunice 13.2, Plt Count 248, MPV 9.3, Immature Gran % (Auto) 0.200, Neut % (Auto) 71.4 H, Lymph % (Auto) 16.7 L, Emanuel % (Auto) 8.0, Eos % (Auto) 3.2, Baso % (Auto) 0.5, Absolute Neuts (auto) 5.8, Absolute Lymphs (auto) 1.36, Nucleated RBC % 0, Sodium 139, Potassium 3.3 L, Chloride 110 H, Carbon Dioxide 26.0, Anion Gap 3 L, BUN 5 L, Creatinine 0.63, Estim Creat Clear Calc 56.83, Est GFR (MDRD) Af Amer 118, Est GFR (MDRD) Non-Af 98, BUN/Creatinine Ratio 7.9 L, Glucose 105, Calcium 8.9, Phosphorus 3.4 Physical Exam Const oriented x3 and no apparent distress Resp normal respiratory effort GI soft to palpation and non-tender Assessment & Plan Assessment/Plan (1) Perforation of sigmoid colon: PLAN: The patient reports that she is comfortable and she has not required narcotics. She has been taking Tylenol for pain. Her drain was serous and I removed it today. She has been tolerating regular diet. I will discharge her home today and have her follow-up with Dr. López later this week. Omar Cooper MD Pager: [facility] [address] [place] [address], [address] [place] [address] Office:
--- NOTE | 2024-03-15 08:23 | DS.PCM_ITS ---
Providers Date of Admission: 03/11/24 Primary Care Physician: Adi Swanson MD Consultations 03/13/24 14:46 Consult: Gastroenterology Routine Consulting Provider: [facility] Reason for Consult: second opinion EMERGENT Consult: No MD Notified: Yes Date Notified: 03/13/24 Time Notified: 14:47 Method of Notification: Text Reason For Visit: PNEUMOPERITONEUM Diagnosis Discharge Diagnosis (1) Perforation of sigmoid colon: Status: Acute Code(s): K63.1 - Perforation of intestine (nontraumatic) Plan: The patient reports that she is comfortable and she has not required narcotics. She has been taking Tylenol for pain. Her drain was serous and I removed it today. She has been tolerating regular diet. I will discharge her home today and have her follow-up with Dr. López later this week. Omar Cooper MD Pager: [facility] [address] [place] [address], [address] [place] [address] Office: Medications at Discharge Home Medications escitalopram oxalate 5 mg tablet 5 mg PO DAILY 02/17/24 montelukast 10 mg tablet 10 mg PO DAILY 02/17/24 omeprazole 20 mg capsule,delayed release 20 mg PO DAILY PRN GERD 02/17/24 rosuvastatin 10 mg tablet 10 mg PO DAILY 02/17/24 albuterol sulfate 90 mcg/actuation aerosol inhaler 1 puff inhalation Q4H PRN PRN wheezing 03/09/24 alendronate 70 mg tablet 70 mg PO QWEEK 03/09/24 acetaminophen 325 mg tablet 650 mg (2 x 325 mg) PO Q6H PRN PRN Pain Score 1-10 #0 tabs 03/15/24 ibuprofen 600 mg tablet 600 mg PO Q6H PRN PRN Pain Score 1-10 #0 tabs 03/15/24 Hospital Course Procedures Colonoscopy Summary of Care Provided Hospital Course: The patient was having colonoscopy and had perforation of the sigmoid colon. Clips were placed. CT scan revealed a large amount of free air and she was taken for exploratory laparoscopy. Laparoscopy did not reveal any source of drainage or contamination. There was noted to be pneumatosis of the cecum. Drain was left in the pelvis and the patient was closed. She was slowly started on a diet. She started tolerating a diet and having bowel movements and the drain continues to be serous. Her white count was normal. She is discharged home and will follow-up with Dr. López. Weight / BMI Weight Weight: 158 lb 11.725 oz Body Mass Index (BMI) 29.9 ABG / Lab / Microbiology Data 03/15/24 04:59 03/15/24 04:59 Laboratory: Laboratory Results - last 24 hr 03/15/24 04:59: WBC 8.1, RBC 4.38, Hgb 12.5, Hct 38.4, MCV 87.7, MCH 28.5, MCHC 32.6, RDW Std Deviation 42.7, RDW Coeff of Eunice 13.2, Plt Count 248, MPV 9.3, Immature Gran % (Auto) 0.200, Neut % (Auto) 71.4 H, Lymph % (Auto) 16.7 L, Bertie % (Auto) 8.0, Eos % (Auto) 3.2, Baso % (Auto) 0.5, Absolute Neuts (auto) 5.8, Absolute Lymphs (auto) 1.36, Nucleated RBC % 0, Sodium 139, Potassium 3.3 L, C hloride 110 H, Carbon Dioxide 26.0, Anion Gap 3 L, BUN 5 L, Creatinine 0.63, Estim Creat Clear Calc 56.83, Est GFR (MDRD) Af Amer 118, Est GFR (MDRD) Non-Af 98, BUN/Creatinine Ratio 7.9 L, Glucose 105, Calcium 8.9, Phosphorus 3.4 D/C Instructions Discharge Diet: No restrictions Discharge Activity: May Drive (after 2-3 days) and May Shower Lifting Restrictions: 15 lbs for 2 weeks Call your doctor if your incision/area has: Continuous Slow Oozing, Sudden Increased Bleeding, Increased Pain/ Swelling, Increased Redness, Foul Smelling Discharge and Swelling at the incision site Call your doctor if you observe: Fever of 101 or Higher Cleanse incision/area with: Soap & Water Please Follow Up With: Tushar López MD When: Please call Saturday schedule follow up appointment for this week. [phone] Meaningful Use Info Meaningful Use Meaningful Use Diagnoses (Choose all that apply): None applicable Ischemic Stroke Statin Dosing Therapy Reference: STATIN DOSE THERAPY REFERENCE: * Patients > 75 years receive moderate or high dose statin therapy. * Patients 75 years or YOUNGER should receive HIGH intensity statin dose unless contraindicated. You will be required to document reason for non-treatment if statin daily dose does not meet guidelines. HIGH DOSE STATIN THERAPY DAILY Atorvastatin > than or = to 40 mg Rosuvastatin > than or = to 20 mg Amlodipine + Atorvastatin > than or = to 2.5/40 mg Ezetimibe + Simvastatin 10/80 mg Simvastatin 80mg Discharge Plan Admission Admit Date/Time: 03/11/24 17:30 Attending Provider: Tushar López Primary Care Provider: Adi Swanson Discharge Orders/Prescriptions Prescriptions: New acetaminophen 325 mg Tablet 650 mg PO Q6H PRN PRN (Reason: Pain Score 1-10) Qty: 0 0RF ibuprofen 600 mg Tablet 600 mg PO Q6H PRN PRN (Reason: Pain Score 1-10) Qty: 0 0RF Continued escitalopram oxalate 5 mg tablet 5 mg PO DAILY montelukast 10 mg tablet 10 mg PO DAILY rosuvastatin 10 mg tablet 10 mg PO DAILY Patient Comments: TAKE 1 TABLET BY MOUTH ONCE DAILY omeprazole 20 mg capsule,delayed release(DR/EC) 20 mg PO DAILY PRN (Reason: GERD) alendronate 70 mg tablet 70 mg PO QWEEK albuterol sulfate 90 mcg/actuation HFA aerosol inhaler 1 puff INHALATION Q4H PRN PRN (Reason: wheezing) Referrals / Follow Up: Adi Swanson MD [Primary Care Provider] - Disposition Disposition (needs filled in before D/C Order can be placed): Home, Self Care
[2024-03-15 09:16] VITALS: BP 144/67; PULSE 82; RESP 18; TEMP 36.7; O2SAT 98
[2024-03-15] MEDS: Pantoprazole Sodium 40 MG in 0.9% Normal Saline (100mL MB+) 100 ML 330 MG IV (09:19)
[2024-03-15 14:22] VITALS: BP 142/76; PULSE 84; RESP 20; TEMP 36.8; O2SAT 98
== END 2024-03-15 15:15 | disposition home or self-care (01) | DRG 357 ==
LOC: EN 21:12 → MS3 21:12
PROVIDERS: Surgery; Admitting Provider Surgery; PCP Family Medicine; Referring Provider Family Medicine; Visit Provider Surgery
PROC: 0DJD8ZZ Inspection of Lower Intestinal Tract, Via Natural or Artificial Opening Endoscopic (ICD-10-PCS; CPT 45378; principal; 2024-03-11 09:25)
PROC: 0DTN0ZZ Resection of Sigmoid Colon, Open Approach (ICD-10-PCS; CPT 44204; principal; 2024-03-11 14:35)
DX: K63.1 Perforation of intestine (nontraumatic) (principal); K62.5 Hemorrhage of anus and rectum; Q43.8 Other specified congenital malformations of intestine; K21.9 Gastro-esophageal reflux disease without esophagitis; K64.0 First degree hemorrhoids; Z78.0 Asymptomatic menopausal state; Z53.8 Procedure and treatment not carried out for other reasons
CPT/HCPCS: 36415; 74018; 74177; 80048; 80053; 83605; 83735; 84100; 85025; 94640; 94668; J7030; J7040; J7050; J7120; Q9967; A4216; J2405

== ENCOUNTER → 2024-04-17 | Outpatient (CLI) | payer MEDICARE, SELFPAY ==
[2024-04-24 18:08] LABS: Calprotectin, Stool 256 ug/g (0-120)
== END | disposition home or self-care (01) ==
LOC: MTLAB 10:58
PROVIDERS: PCP Family Medicine; Referring Provider Surgery; Visit Provider Surgery
DX: K62.5 Hemorrhage of anus and rectum (principal); K63.1 Perforation of intestine (nontraumatic)
CPT/HCPCS: 83630; 83993

== ENCOUNTER → 2024-05-08 | Outpatient (CLI) | payer MEDICARE, SELFPAY ==
[2024-05-08 17:40] LABS: Absolute Lymphocyte Count 2.62 X10^3/uL (0.83-4.51); Absolute Neutrophil Count 7.2 X10^3/uL (2.0-7.7); Basophil# 0.08 X10^3/uL; Basophil% 0.7 % (0-1); Eosinophil# 0.24 X10^3/uL; Eosinophils% 2.2 % (0-5); Hematocrit 43.1 % (37-47); Hemoglobin 13.5 g/dL (12.0-15.0); Lymphocyte # 2.62 X10^3/ul (0.83-4.51); Mean Corp Hgb Conc 31.3 g/dL (32-36); Mean Corpuscular Hgb 27.5 pg (27.0-32.0); Mean Corpuscular Volume 87.8 fL (81-99); Mean Platelet Vol. 10.6 fl (6.2-12.0); Monocyte# 0.76 X10^3/uL; NRBC Flagged by Analyzer 0 % (0-5); Neutrophil # 7.16 X10^3/uL (2.7-7.7); Neutrophil % 65.7 % (47-70); POSITIVE COUNT YES; RBC Distribution Width CV 13.5 % (11.6-14.6); RBC Distribution Width SD 43.8 fl (35.1-43.9); Red Blood Count 4.91 M/mm3 (4.2-5.4); White Blood Count 10.9 K/mm3 (4.4-11.0)
[2024-05-08 18:10] LABS: Platelet Estimate ADEQUATE (ADEQ)
== END | disposition home or self-care (01) ==
LOC: MTLAB 14:55
PROVIDERS: PCP Family Medicine; Referring Provider Family Medicine; Visit Provider Family Medicine
DX: R10.9 Unspecified abdominal pain (principal)
CPT/HCPCS: 36415; 85025

== ENCOUNTER → 2024-05-11 | Outpatient (CLI) | payer MEDICARE, SELFPAY ==
[2024-05-13 16:10] LABS: Calprotectin, Stool 178 ug/g (0-120)
== END | disposition home or self-care (01) ==
LOC: LABSPEC 10:34
PROVIDERS: PCP Family Medicine; Referring Provider Family Medicine; Visit Provider Family Medicine
DX: R10.9 Unspecified abdominal pain (principal)
CPT/HCPCS: 83993

== ENCOUNTER → 2024-07-10 | Outpatient (CLI) | payer MEDICARE, SELFPAY ==
--- NOTE | 2024-07-10 12:35 | BI_ITS ---
MAMMOGRAPHY - BILATERAL SCREENING REASON FOR EXAM: Female, 74 years old. Routine annual screening examination. PERTINENT HISTORY: Sister with breast cancer. TECHNIQUE: Digital bilateral breast conchis (3D mammographic acquisition) in the CC and MLO projections. 2-D mediolateral oblique (MLO) and craniocaudad (CC) views of both breasts were obtained. CAD: Full Field Digital Mammography with Computer Added Detection was performed. COMPARISON: Comparison is made with prior study June 05, 2023 and June 04, 2022. FINDINGS: Breast Composition: There are scattered areas of fibroglandular density. There are no dominant masses or suspicious calcifications. No other significant abnormalities are identified. There has been no significant change since the prior study. BI/SCRN MAMM (CAD)W/CONCHIS BILAT IMPRESSION: Stable bilateral screening mammogram. Yearly follow-up mammogram recommended. (A) ASSESSMENT CATEGORY: BIRADS Category 1: Negative. A letter regarding these results will be sent to the patient by the facility within 30 days. Approximately 10% of breast cancers are not detected by mammography. A normal mammogram should not delay biopsy of a clinically suspicious abnormality. [id number] Electronically Signed: Dhiraj Bliss MD at 13:14 EDT ,
== END | disposition home or self-care (01) ==
PROVIDERS: PCP Family Medicine; Referring Provider Family Medicine; Visit Provider Family Medicine
DX: Z12.31 Encounter for screening mammogram for malignant neoplasm of breast (principal); Z80.3 Family history of malignant neoplasm of breast
CPT/HCPCS: 77063; 77067

== ENCOUNTER → 2025-01-18 | Outpatient (CLI) | payer MEDICARE, SELFPAY ==
[2025-01-18 12:46] LABS: Absolute Lymphocyte Count 1.96 X10^3/uL (0.83-4.51); Absolute Neutrophil Count 3.2 X10^3/uL (2.0-7.7); Basophil# 0.04 X10^3/uL; Basophil% 0.7 % (0-1); Eosinophil# 0.12 X10^3/uL; Eosinophils% 2.1 % (0-5); Hematocrit 44.7 % (37-47); Hemoglobin 14.7 g/dL (12.0-15.0); Lymphocyte # 1.96 X10^3/ul (0.83-4.51); Lymphocyte % 33.9 % (19-41); Mean Corp Hgb Conc 32.9 g/dL (32-36); Mean Corpuscular Hgb 28.7 pg (27.0-32.0); Mean Corpuscular Volume 87.1 fL (81-99); Mean Platelet Vol. 10.2 fl (6.2-12.0); Monocyte# 0.49 X10^3/uL; Monocyte% 8.5 % (0-10); NRBC Flagged by Analyzer 0 % (0-5); Neutrophil # 3.16 X10^3/uL (2.7-7.7); Neutrophil % 54.5 % (47-70); Platelet Count 200 K/mm3 (150-450); RBC Distribution Width CV 12.7 % (11.6-14.6); RBC Distribution Width SD 40.7 fl (35.1-43.9); Red Blood Count 5.13 M/mm3 (4.2-5.4); White Blood Count 5.8 K/mm3 (4.4-11.0)
[2025-01-18 13:14] LABS: Cholesterol 186 mg/dL (<=200); High Density Lipoprotein 55 mg/dL; Low Density Lipoprotein Calc. 87 mg/dL; Triglycerides 220 mg/dL; Very Low Density Lipoprotein 44 mg/dL (5-40); Vitamin D,25 Hydroxy 36.4 ng/mL (30-100)
[2025-01-18 13:18] LABS: ALB/GLOB Ratio 1.4 RATIO (0.9-2.4); AST(SGOT) 47 U/L (<=31); Alanine Aminotransfer ALT/SGPT 50 U/L (<=34); Albumin, Serum 4.2 g/dL (3.4-4.8); Alkaline Phosphatase 74 U/L (35-104); Anion Gap 10 (5-15); BUN 8 mg/dL (4-19); BUN/Creat Ratio 9.6 RATIO (10-20); Calcium,Total 9.2 mg/dL (7.6-11.0); Carbon Dioxide 25.9 mmol/L (21.0-32.0); Chloride 104 mmol/L (98-108); Creatinine, Serum 0.81 mg/dL (0.70-1.20); EST Glomerular Filtration Rate 77 (>60); Globulin 2.9 g/dL (2.2-4.2); Glucose 99 mg/dL (70-99); Potassium 4.4 mmol/L (3.3-5.1); Sodium Level 140 mmol/L (133-145)
== END | disposition home or self-care (01) ==
LOC: MFPLAB 10:37
PROVIDERS: PCP Family Medicine; Referring Provider Family Medicine; Visit Provider Family Medicine
DX: K92.1 Melena (principal); E78.2 Mixed hyperlipidemia; M51.369 Other intervertebral disc degeneration, lumbar region without mention of lumbar back pain or lower extremity pain; E87.6 Hypokalemia
CPT/HCPCS: 36415; 80053; 80061; 82306; 85025